=== PATIENT | male | born 1960 | race Caucasian/White ===

== ENCOUNTER → 2018-08-19 10:20 | Outpatient (CLI) | payer OTHER, SELFPAY ==
[2018-08-19 11:55] LABS: Absolute Lymphocyte Count 2.66 X10^3/ul (0.83-4.51); Absolute Neutrophil Count 4.7 X10^3/uL (2.0-7.7); Basophil# 0.02 X10^3/uL; Basophil% 0.2 % (0-1); Eosinophil# 0.05 X10^3/uL; Eosinophils% 0.6 % (0-5); Hematocrit 45.9 % (40-54); Hemoglobin 15.5 g/dl (13.0-16.5); Lymphocyte # 2.66 X10^3/ul (4.0); Lymphocyte % 32.5 % (19-41); Mean Corp Hgb Conc 33.8 g/gl (32-36); Mean Corpuscular Hgb 33.5 pg (27.0-32.0); Mean Corpuscular Volume 99.1 fL (80-94); Mean Platelet Vol. 10.5 fl (6.2-12.0); Monocyte# 0.71 X10^3/uL; Monocyte% 8.7 % (0-10); Neutrophil # 4.74 X10^3/uL (2.7-7.7); Neutrophil % 57.9 % (47-70); Platelet Count 238 K/mm3 (150-450); RBC Distribution Width CV 12.9 % (11.6-14.6); RBC Distribution Width SD 46.6 fl (35.1-43.9); Red Blood Count 4.63 M/mm3 (4.6-6.2); White Blood Count 8.2 K/mm3 (4.4-11.0)
[2018-08-19 11:56] LABS: POSITIVE COUNT NO; POSITIVE DIFFERENTIAL NO; POSITIVE MORPHOLOGY NO
[2018-08-19 12:12] LABS: ALB/GLOB Ratio 1.1 RATIO (0.9-2.4); AST(SGOT) 16 U/L (15-37); Alanine Aminotransfer ALT/SGPT 27 U/L (16-61); Alkaline Phosphatase 94 U/L (45-117); Anion Gap 7 (5-15); BUN 20 mg/dL (7-18); Calcium,Total 9.1 mg/dL (8.5-10.1); Chloride 101 mmol/L (98-107); Cholesterol 187 mg/dL (200); Creatinine, Serum 1.25 mg/dL (0.70-1.30); EST Glomerular Filtration Rate 63 mL/min (>60); Est Glom Filt Rate - Afr Amer 76 mL/min (>60); Globulin 3.7 g/dL (2.2-4.2); Glucose 100 mg/dL (74-106); High Density Lipoprotein 36 mg/dL; PSA,Total - Annual Screen 0.75 ng/mL (0.00-4.00); Potassium 4.4 mmol/L (3.5-5.1); Protein, Total 7.7 g/dL (6.4-8.2); Sodium Level 137 mmol/L (136-145); Triglycerides 247 mg/dL; Very Low Density Lipoprotein 49 mg/dL (5-40)
== END ==
PROVIDERS: Family Provider Family Medicine; PCP Family Medicine; Visit Provider Family Medicine
DX: Z00.01 Encounter for general adult medical examination with abnormal findings (principal); Z12.5 Encounter for screening for malignant neoplasm of prostate
CPT/HCPCS: 36415; 80053; 80061; 84153; 85025; G0103

== ENCOUNTER → 2019-08-25 08:48 | Outpatient (CLI) | payer OTHER, SELFPAY ==
[2019-08-25 12:12] LABS: Absolute Lymphocyte Count 2.53 X10^3/uL (0.83-4.51); Absolute Neutrophil Count 5.3 X10^3/uL (2.0-7.7); Basophil# 0.03 X10^3/uL; Basophil% 0.3 % (0-1); Eosinophil# 0.05 X10^3/uL; Eosinophils% 0.6 % (0-5); Hematocrit 46.5 % (40-54); Hemoglobin 15.9 g/dL (13.0-16.5); Lymphocyte # 2.53 X10^3/ul (4.0); Lymphocyte % 29.1 % (19-41); Mean Corp Hgb Conc 34.2 g/dL (32-36); Mean Corpuscular Hgb 33.3 pg (27.0-32.0); Mean Corpuscular Volume 97.5 fL (80-94); Mean Platelet Vol. 10.6 fl (6.2-12.0); Monocyte# 0.74 X10^3/uL; Monocyte% 8.5 % (0-10); NRBC Flagged by Analyzer 0 % (0-5); Neutrophil # 5.29 X10^3/uL (2.7-7.7); Platelet Count 267 K/mm3 (150-450); RBC Distribution Width CV 12.2 % (11.6-14.6); RBC Distribution Width SD 44.1 fl (35.1-43.9); Red Blood Count 4.77 M/mm3 (4.6-6.2); White Blood Count 8.7 K/mm3 (4.4-11.0)
[2019-08-25 12:32] LABS: ALB/GLOB Ratio 1.1 RATIO (0.9-2.4); AST(SGOT) 22 U/L (15-37); Alanine Aminotransfer ALT/SGPT 35 U/L (16-61); Albumin, Serum 3.9 g/dL (3.2-5.0); Alkaline Phosphatase 87 U/L (45-117); Anion Gap 9 (5-15); BUN 20 mg/dL (7-18); BUN/Creat Ratio 14.7 RATIO (10-20); Calcium,Total 9.1 mg/dL (8.5-10.1); Chloride 102 mmol/L (98-107); Creatinine, Serum 1.36 mg/dL (0.70-1.30); EST Glomerular Filtration Rate 57 mL/min (>60); Est Glom Filt Rate - Afr Amer 68 mL/min (>60); Globulin 3.7 g/dL (2.2-4.2); Glucose 108 mg/dL (74-106); PSA,Total - Annual Screen 1.56 ng/mL (0.00-4.00); Potassium 4.5 mmol/L (3.5-5.1); Protein, Total 7.6 g/dL (6.4-8.2); Sodium Level 138 mmol/L (136-145)
[2019-08-25 14:03] LABS: Hemoglobin A1c 5.9 % (4.2-6.3)
== END ==
PROVIDERS: Family Provider Family Medicine; PCP Family Medicine; Visit Provider Family Medicine
DX: Z00.00 Encounter for general adult medical examination without abnormal findings (principal); Z12.5 Encounter for screening for malignant neoplasm of prostate; R73.01 Impaired fasting glucose
CPT/HCPCS: 36415; 80053; 83036; 84153; 85025; G0103

== ENCOUNTER → 2019-09-02 07:02 | Outpatient (CLI) | payer OTHER, SELFPAY ==
--- NOTE | 2019-09-02 07:05 | CT_ITS ---
STUDY: LOW DOSE CT LUNG CANCER SCREENING REASON FOR EXAM: Male, 59 years old. Patient smoked 1 pack a day for 40 years. RADIATION DOSAGE (If Supplied By Facility): CTDIvol = ( 3.02 ) mGy, DLP = ( 111.74 ) mGycm TECHNIQUE: No contrast was administered. Low dose technique was utilized (average mAS-38 and kVp 120). 1.25 mm axial source images with a slice interval of 1.25-mm were reconstructed in lung windows. 2.5 mm axial source images with a slice interval of 2.5-mm were reconstructed in lung windows. 5.0 mm axial source images with a slice interval of 5.0-mm were reconstructed in soft tissue windows. Nodule measured using lung windows on PACS and/or independent workstation with automated measurement of minimum and maximum diameter. Nodule measurement reported as average diameter rounded to the nearest whole number. Growth is defined as an increase ins size of greater than 1.5 mm. COMPARISON: None. NODULES: No suspicious nodules are seen. Emphysema: Linear scarring at the lung apices. Aorta: Unremarkable. Coronary arteries: Coronary artery calcifications. Heart: Not enlarged. Pulmonary artery: Unremarkable Mediastinal nodes: Small benign-appearing mediastinal lymph nodes. Other chest and abdominal findings: Small hiatal hernia. CT/Low Dose CT Lung Screening IMPRESSION: Lung-RADS category 2 - Continue annual screening with LDCT in 12 months. IMPORTANT NOTES FOR USE: ACR Lung-RADS Version 1.0 Assessment Categories Release Date: February 20, 2014 Category: Coded 0-4 bases on nodule(s) with highest degree of suspicion. Negative screen is defined as categories 1 and 2; a positive screen is defined as categories 3 and 4. Category 3 and 4A nodules that are unchanged on interval CT should be coded as category 2, and individuals returned to screening in 12 months. Category 4X: Category 3 or 4 nodules with additional imaging findings that increase the suspicion of lung cancer, such as spiculation, GGN that doubles in size in 1 year, enlarged lymph notes, etc. Category Modifiers: S (significant finding unrelated to lung cancer) and C (prior history of treated lung cancer) may be added to the 0-4 Lung-RADS Electronically Signed: Colin Dick, at 13:04 EST , Service support ,
== END ==
PROVIDERS: Family Provider Family Medicine; PCP Family Medicine; Referring Provider Family Medicine; Visit Provider Family Medicine
DX: Z12.2 Encounter for screening for malignant neoplasm of respiratory organs (principal); Z87.891 Personal history of nicotine dependence
CPT/HCPCS: G0297

== ENCOUNTER → 2020-08-27 08:54 | Outpatient (CLI) | payer OTHER, SELFPAY ==
[2020-08-27 12:46] LABS: Absolute Lymphocyte Count 2.02 X10^3/uL (0.83-4.51); Absolute Neutrophil Count 4.2 X10^3/uL (2.0-7.7); Basophil# 0.02 X10^3/uL; Basophil% 0.3 % (0-1); Eosinophil# 0.02 X10^3/uL; Eosinophils% 0.3 % (0-5); Hematocrit 45.7 % (40-54); Hemoglobin 15.1 g/dL (13.0-16.5); Lymphocyte # 2.02 X10^3/ul (4.0); Lymphocyte % 29.8 % (19-41); Mean Corpuscular Hgb 32.7 pg (27.0-32.0); Mean Corpuscular Volume 98.9 fL (80-94); Mean Platelet Vol. 10.9 fl (6.2-12.0); Monocyte# 0.51 X10^3/uL; Monocyte% 7.5 % (0-10); NRBC Flagged by Analyzer 0 % (0-5); Neutrophil # 4.18 X10^3/uL (2.7-7.7); Neutrophil % 61.8 % (47-70); Platelet Count 253 K/mm3 (150-450); RBC Distribution Width CV 12.5 % (11.6-14.6); RBC Distribution Width SD 45.5 fl (35.1-43.9); Red Blood Count 4.62 M/mm3 (4.6-6.2); White Blood Count 6.8 K/mm3 (4.4-11.0)
[2020-08-27 12:47] LABS: Hemoglobin A1c 5.7 % (3.8-5.6)
[2020-08-27 12:48] LABS: ALB/GLOB Ratio 1.1 RATIO (0.9-2.4); AST(SGOT) 27 U/L (15-37); Alanine Aminotransfer ALT/SGPT 28 U/L (16-61); Albumin, Serum 3.9 g/dL (3.2-5.0); Alkaline Phosphatase 83 U/L (45-117); Anion Gap 6 (5-15); BUN 20 mg/dL (7-18); BUN/Creat Ratio 15.6 RATIO (10-20); Calcium,Total 8.8 mg/dL (8.5-10.1); Chloride 102 mmol/L (98-107); Cholesterol 199 mg/dL (200); Creatinine, Serum 1.28 mg/dL (0.70-1.30); EST Glomerular Filtration Rate 61 mL/min (>60); Est Glom Filt Rate - Afr Amer 73 mL/min (>60); Globulin 3.6 g/dL (2.2-4.2); Glucose 105 mg/dL (74-106); High Density Lipoprotein 47 mg/dL; PSA,Total - Annual Screen 0.66 ng/mL (0.00-4.00); Potassium 4.6 mmol/L (3.5-5.1); Protein, Total 7.5 g/dL (6.4-8.2); Sodium Level 136 mmol/L (136-145); Triglycerides 204 mg/dL; Very Low Density Lipoprotein 41 mg/dL (5-40)
== END ==
PROVIDERS: PCP Family Medicine; Visit Provider Family Medicine
DX: Z00.00 Encounter for general adult medical examination without abnormal findings (principal); I10 Essential (primary) hypertension; R73.01 Impaired fasting glucose; Z12.5 Encounter for screening for malignant neoplasm of prostate
CPT/HCPCS: 36415; 80053; 80061; 83036; 84153; 85025; G0103

== ENCOUNTER 2021-01-03 12:00 | Outpatient (RCR) | payer OTHER, SELFPAY ==
[2021-01-03] MEDS: COVID-19 VACC, MRNA(PFIZER)/PF 30 MCG/0.3 ML SYRINGE IM (11:47)
[2021-01-24] MEDS: COVID-19 VACC, MRNA(PFIZER)/PF 30 MCG/0.3 ML SYRINGE IM (11:41)
== END 2021-01-03 23:59 ==
LOC: IMMUN 12:00
PROVIDERS: PCP Family Medicine; Visit Provider Family Medicine
DX: Z23 Encounter for immunization (principal)
CPT/HCPCS: 0001A; 0002A; 91300

== ENCOUNTER → 2021-09-07 08:40 | Outpatient (CLI) | payer OTHER, SELFPAY ==
--- NOTE | 2021-09-07 08:46 | CT_ITS ---
STUDY: LOW DOSE CT LUNG CANCER SCREENING REASON FOR EXAM: Male, 61 years old. Smoking history of 1 pack per day x40 years RADIATION DOSAGE (If Supplied By Facility): CTDIvol = ( 3.02 ) mGy, DLP = ( 121.92 ) mGycm TECHNIQUE: No contrast was administered. Low dose technique was utilized (average mAS-38 and kVp 120). 1.25 mm axial source images with a slice interval of 1.25-mm were reconstructed in lung windows. 2.5 mm axial source images with a slice interval of 2.5-mm were reconstructed in lung windows. 5.0 mm axial source images with a slice interval of 5.0-mm were reconstructed in soft tissue windows. Nodule measured using lung windows on PACS and/or independent workstation with automated measurement of minimum and maximum diameter. Nodule measurement reported as average diameter rounded to the nearest whole number. Growth is defined as an increase ins size of greater than 1.5 mm. COMPARISON: 09/02/2019 FINDINGS: Lung windows show stable pleural thickening in the apices. Lungs are normally expanded without a superimposed noncalcified mass or nodule, no organized infiltrate, or effusion. Soft tissue windows do not show evidence of suspicious adenopathy. There are calcified coronary vessels. No pleural or pericardial effusions. Bony structures show degenerative change. Limited cuts through the upper abdomen show multiple gallstones. CT/Low Dose CT Lung Screening IMPRESSION: Lung-RADS category 2 - Continue annual screening with LDCT in 12 months. IMPORTANT NOTES FOR USE: ACR Lung-RADS Version 1.1 Assessment Categories Release Date: 2018 Category: Coded 0-4 bases on nodule(s) with highest degree of suspicion. Negative screen is defined as categories 1 and 2; a positive screen is defined as categories 3 and 4. Category 3 and 4A nodules that are unchanged on interval CT should be coded as category 2, and individuals returned to screening in 12 months. Category 4X: Category 3 or 4 nodules with additional imaging findings that increase the suspicion of lung cancer, such as spiculation, GGN that doubles in size in 1 year, enlarged lymph notes, etc. Category Modifiers: S (significant finding unrelated to lung cancer) Electronically Signed: Prashanth Mehta MD at 9:44 EST , Service support ,
== END ==
PROVIDERS: PCP Family Medicine; Visit Provider Family Medicine
DX: Z12.2 Encounter for screening for malignant neoplasm of respiratory organs (principal)
CPT/HCPCS: 71271

== ENCOUNTER 2021-12-06 08:28 | Day surgery (SDC) | payer OTHER, SELFPAY ==
[2021-12-06 08:45] VITALS: BP 106/75; PULSE 68; RESP 18; TEMP 36.4; O2SAT 100; BMI 23.6
[2021-12-06] MEDS: Lactated Ringers 1,000 ML 15 ML IV (08:45)
--- NOTE | 2021-12-06 09:02 | PCM.HP.BLA ---
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 Is patient in pain?: No Allergies No Known Allergies Allergy (Verified 11/25/21 13:04) Medications aspirin 81 mg tablet,delayed release 81 mg PO DAILY 11/25/21 [History Confirmed 11/25/21] lisinopril 20 mg-hydrochlorothiazide 12.5 mg tablet 1 tab PO DAILY 11/25/21 [History Confirmed 11/25/21] PFSH Medical History (Updated 11/25/21 @ 13:02 by Tamrathursday) History of malignant melanoma History of malignant melanoma of skin Hypertension Psoriasis Surgical History (Updated 11/25/21 @ 13:02 by Tamra Thursday) History of removal of skin mole History of tonsillectomy Family History (Updated 11/25/21 @ 13:03 by Tamra Thursday) Father Hypertension Heart disease CVA (cerebral vascular accident) Mother Hypertension Cancer skin Uncle Colon cancer Social History (Updated 11/25/21 @ 13:03 by Tamra Thursday) Smoking Status: Former smoker alcohol intake: current substance use type: does not use HPI HPI HPI: KAREL CASH, is a 61 M who presents to the office today for surgical consultation regarding a screening colonoscopy. The patient's had a previous history of left shoulder melanoma that was excised in 2010 at [facility]. The patient is referred by Dr. Emery Jacobsen and a written copy of my surgical consult recommendations regarding a screening colonoscopy will be returned to him. The patient had a previous colonoscopy 10 years ago. He denies any current symptoms. Fortunately he ceased smoking tobacco 3 years ago. He denies chest pain or shortness of breath. He does have hypertension treated with oral medication. No family history ROS General General: No weight change, appetite, fatigue, colon cancer, breast cancer or weakness HEENT HEENT: No difficulty swallowing, eye injury, eye surgery, swollen glands or hoarseness Endo Endocrine: No thyroid disease, diabetes mellitus, thyroid cancer, Hair loss, heat intolerance or cold intolerance Skin Skin: No rash or changing moles Musc Musculoskeletal: No back problems, arthritis, rheumatoid arthritis, gout or joint pain Cardio Cardiovascular: No murmur, pacemaker, heart disease, atrial fibrillation, high blood pressure, heart attack, heart stent, palpitations, shortness of breat with exertion or chest pain Psych Psychiatric: No depression, anxiety or hearing voices Resp Respiratory: No shortness of breath, No sleep apnea, No cough, No COPD, No asthma, No emphysema and No wheezing Gastro Gastrointestinal: No abdominal pain, No nausea or vomiting, No diarrhea, No constipation, No blood in stool, No acid reflux, No hemorrhoids, No ulcers, No gallbladder problem and No black,tarry stools Tylor Hematologic: No blood thinners, No blood disorders, No bleeding, No anemia and No blood clots Neuro Neurologic: No system reviewed and no additional complaints, except as documented, No as per HPI, No abnormal gait, No abnormal hearing, No abnormal movements, No abnormal speech, No behavioral changes, No burning sensations, No confusion, No convulsions, No disequilibrium, No dizziness, No localized weakness, No frequent falls, No headache(s), No lack of coordination, No loss of vision, No memory loss, No numbness, No other visual disturbances, No radicular pain, No restless legs, No sensory deficit, No syncope, No tingling, No tremor(s), No weakness and No other Exam Const General: cooperative, healthy appearing and comfortable Nutritional Appearance: average body habitus Orientation: alert and awake [facility] Head: normal to inspection Eyes General: appearance normal, both eyes and all related structures Chest Other: Increased anterior posterior diameter Resp Effort & Inspection: normal respiratory effort Auscultation: clear to auscultation bilaterally Cardio Rate: regular rate Rhythm: regular rhythm GI Palpation: soft and no hepatosplenomegaly Skin General: no rashes or lesions noted Neuro General: patient alert and patient awake Extrem General: no calf tenderness Psych Appearance: grossly normal Assessment and Plan Assessment and Plan (1) Screening for intestinal cancer: Status: Acute Plan - Dr. Helder Sosa MD: Plan to schedule and proceed with a screening colonoscopy with possible biopsy or polypectomy as indicated. History of note is previous history of tobacco use and previous history of melanoma of the left shoulder. The patient is asymptomatic from a GI standpoint. He has had an opportunity to ask and have questions answered. We will schedule and proceed at his discretion. I appreciate the opportunity of assisting with her surgical care. Copy: Dr. Emery Sosa M.D., F.A.C.S. I have re-examined the patient. There are no clinical changes since date of exam.
--- NOTE | 2021-12-06 10:29 | OP.COLON_ITS ---
Patient Name: Marc Fofana Procedure Date: 12/06/2021 9:59 AM Date of : 1960 Age: 61 Procedure: Colonoscopy Indications: Screening for colorectal malignant neoplasm Providers: Helder Sosa MD Medicines: See the Anesthesia note for documentation of the administered medications Patient Profile: Last Colonoscopy: 10 years ago. Complications: No immediate complications. Procedure: Pre-Anesthesia Assessment: - Prior to the procedure, a History and Physical was performed, and patient medications and allergies were reviewed. The patient's tolerance of previous anesthesia was also reviewed. The risks and benefits of the procedure and the sedation options and risks were discussed with the patient. All questions were answered, and informed consent was obtained. Prior Anticoagulants: The patient has taken no previous anticoagulant or antiplatelet agents. ASA Grade Assessment: II - A patient with mild systemic disease. After reviewing the risks and benefits, the patient was deemed in satisfactory condition to undergo the procedure. After I obtained informed consent, the scope was passed under direct vision. Throughout the procedure, the patient's blood pressure, pulse, and oxygen saturations were monitored continuously. The colonoscope was introduced through the anus and advanced to the cecum, identified by appendiceal orifice and ileocecal valve. The colonoscopy was performed without difficulty. The patient tolerated the procedure well. The quality of the bowel preparation was good. The ileocecal valve and the appendiceal orifice were photographed. Scope In: 10:10:59 AM Scope Withdrawal Time 0 hours 9 minutes 0 seconds Scope Out: 10:24:39 AM Total Procedure Duration Time 0 hours 13 minutes 40 seconds Findings: The digital rectal exam findings include non-thrombosed internal hemorrhoids and internal hemorrhoids (Grade I). Pertinent negatives include normal prostate (size, shape, and consistency). The exam was otherwise without abnormality. Impression: - Non-thrombosed internal hemorrhoids and internal hemorrhoids (Grade I) found on digital rectal exam. - The examination was otherwise normal. - No specimens collected. Recommendation: - Discharge patient to home. - Resume previous diet. - Continue present medications. - Repeat colonoscopy in 10 years for screening purposes. Procedure Code(s): --- Professional --- 98573, Colonoscopy, flexible; diagnostic, including collection of specimen(s) by brushing or washing, when performed (separate procedure) Diagnosis Code(s): --- Professional --- Z12.11, Encounter for screening for malignant neoplasm of colon K64.0, First degree hemorrhoids CPT copyright 2017 [employer]. All rights reserved. The codes documented in this report are preliminary and upon surface mount technology operator review may be revised to meet current compliance requirements. Helder Sosa MD 12/06/2021 10:29:24 AM This report has been signed electronically. Number of Addenda: 0 Note Initiated On: 12/06/2021 9:59 AM
[2021-12-06 10:30] VITALS: BP 101/64; BP 106/75; PULSE 71; RESP 16; TEMP 36.3; O2SAT 97
--- NOTE | 2021-12-06 10:30 | OP.CCLET_ITS ---
12/06/2021 Emery Jacobsen [address] [place] [address] Re : Colonoscopy procedure for Marc Fofana Dear Dr. Jacobsen This procedure was performed on Monday, December 06, 2021. My impressions and recommendations are as follows: Impressions : - Non-thrombosed internal hemorrhoids and internal hemorrhoids (Grade I) found on digital rectal exam. - The examination was otherwise normal. - No specimens collected. Recommendations : - Discharge patient to home. - Resume previous diet. - Continue present medications. - Repeat colonoscopy in 10 years for screening purposes. My findings are described in the full procedure note, which is enclosed. If I can be of further assistance, please feel free to contact me at Doctor phone number(s): Work: . Sincerely, Helder Sosa MD 12/06/2021 10:29:24 AM This report has been signed electronically.
[2021-12-06 10:35] VITALS: BP 101/69; BP 106/75; PULSE 65; RESP 16; O2SAT 95
[2021-12-06 10:41] VITALS: BP 106/75; BP 99/64; PULSE 62; RESP 16; O2SAT 95
[2021-12-06 10:44] VITALS: BP 104/73; BP 106/75; PULSE 59; RESP 16; TEMP 36.6; O2SAT 99
[2021-12-06 11:00] VITALS: BP 106/75
== END 2021-12-06 23:59 | disposition home or self-care (01) ==
LOC: EN 08:30 → AC 08:30
PROVIDERS: PCP Family Medicine; Referring Provider Family Medicine; Visit Provider Surgery
PROC: 0DJD8ZZ Inspection of Lower Intestinal Tract, Via Natural or Artificial Opening Endoscopic (ICD-10-PCS; CPT 45378; principal; 2021-12-06 09:40)
DX: Z12.11 Encounter for screening for malignant neoplasm of colon (principal); K64.0 First degree hemorrhoids; I10 Essential (primary) hypertension; Z80.0 Family history of malignant neoplasm of digestive organs; Z87.891 Personal history of nicotine dependence; Z79.82 Long term (current) use of aspirin; Z79.899 Other long term (current) drug therapy
CPT/HCPCS: 45378; J7120; J2405

== ENCOUNTER → 2022-09-11 | Outpatient (CLI) | payer OTHER, SELFPAY ==
[2022-09-11 12:19] LABS: Absolute Lymphocyte Count 2.19 X10^3/uL (0.83-4.51); Basophil# 0.04 X10^3/uL; Basophil% 0.4 % (0-1); Eosinophil# 0.05 X10^3/uL; Eosinophils% 0.6 % (0-5); Hematocrit 45.2 % (40-54); Hemoglobin 15.3 g/dL (13.0-16.5); Lymphocyte # 2.19 X10^3/ul (0.83-4.51); Lymphocyte % 24.1 % (19-41); Mean Corp Hgb Conc 33.8 g/dL (32-36); Mean Corpuscular Hgb 32.8 pg (27.0-32.0); Mean Platelet Vol. 10.4 fl (6.2-12.0); Monocyte# 0.73 X10^3/uL; NRBC Flagged by Analyzer 0 % (0-5); Neutrophil # 6.02 X10^3/uL (2.7-7.7); Neutrophil % 66.5 % (47-70); Platelet Count 284 K/mm3 (150-450); RBC Distribution Width CV 12.9 % (11.6-14.6); RBC Distribution Width SD 45.7 fl (35.1-43.9); Red Blood Count 4.66 M/mm3 (4.6-6.2); White Blood Count 9.1 K/mm3 (4.4-11.0)
[2022-09-11 12:44] LABS: Hemoglobin A1c 5.8 % (3.8-5.6)
[2022-09-11 13:14] LABS: AST(SGOT) 20 U/L (15-37); Alanine Aminotransfer ALT/SGPT 29 U/L (16-61); Albumin, Serum 3.7 g/dL (3.2-5.0); Alkaline Phosphatase 77 U/L (45-117); Anion Gap 6 (5-15); BUN 20 mg/dL (7-18); BUN/Creat Ratio 15.2 RATIO (10-20); Calcium,Total 9.1 mg/dL (8.5-10.1); Chloride 103 mmol/L (98-107); Cholesterol 198 mg/dL (200); Creatinine, Serum 1.32 mg/dL (0.70-1.30); EST Glomerular Filtration Rate 58 mL/min (>60); Est Glom Filt Rate - Afr Amer 70 mL/min (>60); Globulin 3.8 g/dL (2.2-4.2); Glucose 107 mg/dL (74-106); High Density Lipoprotein 46 mg/dL; PSA,Total - Annual Screen 0.83 ng/mL (0.00-4.00); Potassium 4.9 mmol/L (3.5-5.1); Protein, Total 7.5 g/dL (6.4-8.2); Sodium Level 136 mmol/L (136-145); Triglycerides 219 mg/dL; Very Low Density Lipoprotein 44 mg/dL (5-40)
== END | disposition home or self-care (01) ==
LOC: BFHLAB 10:01
PROVIDERS: PCP Family Medicine; Visit Provider Family Medicine
DX: Z00.00 Encounter for general adult medical examination without abnormal findings (principal); R73.01 Impaired fasting glucose
CPT/HCPCS: 36415; 80053; 80061; 83036; 84153; 85025; G0103

== ENCOUNTER → 2022-09-23 | Outpatient (CLI) | payer OTHER, SELFPAY ==
--- NOTE | 2022-09-23 07:47 | CT_ITS ---
STUDY: LOW DOSE CT LUNG CANCER SCREENING REASON FOR EXAM: Male, 62 years old. 1 pack per day smoker x44 years, quit 4 years ago RADIATION DOSAGE (If Supplied By Facility): CTDIvol = ( 3.02 ) mGy, DLP = ( 116.64 ) mGycm TECHNIQUE: No contrast was administered. Low dose technique was utilized (average mAS-38 and kVp 120). 1.25 mm axial source images with a slice interval of 1.25-mm were reconstructed in lung windows. 2.5 mm axial source images with a slice interval of 2.5-mm were reconstructed in lung windows. 5.0 mm axial source images with a slice interval of 5.0-mm were reconstructed in soft tissue windows. COMPARISON: 09/07/2021 FINDINGS: Lung windows show normal expansion of the lungs with stable nonspecific pleural thickening in the apices and interstitial changes in both lung kaplan. There remains no organized infiltrate, or suspicious noncalcified mass or nodule. Soft tissue windows show normal-appearing thyroid gland. No suspicious adenopathy. There is aneurysmal dilatation of the ascending thoracic aorta at 4.04 cm. There are calcified coronary vessels. No pleural or pericardial effusions. Limited cuts through the upper abdomen show a hiatal hernia and multiple gallstones. Bony structures show degenerative change CT/Low Dose CT Lung Screening IMPRESSION: Lung-RADS category 2 - Continue annual screening with LDCT in 12 months. IMPORTANT NOTES FOR USE: ACR Lung-RADS Version 1.1 Assessment Categories Release Date: 2018 Category: Coded 0-4 bases on nodule(s) with highest degree of suspicion. Negative screen is defined as categories 1 and 2; a positive screen is defined as categories 3 and 4. Category 3 and 4A nodules that are unchanged on interval CT should be coded as category 2, and individuals returned to screening in 12 months. Category 4X: Category 3 or 4 nodules with additional imaging findings that increase the suspicion of lung cancer, such as spiculation, GGN that doubles in size in 1 year, enlarged lymph notes, etc. Category Modifiers: S (significant finding unrelated to lung cancer) Electronically Signed: Prashanth Mehta MD at 10:20 EST ,
== END | disposition home or self-care (01) ==
PROVIDERS: PCP Family Medicine; Referring Provider Family Medicine; Visit Provider Family Medicine
DX: Z12.2 Encounter for screening for malignant neoplasm of respiratory organs (principal); Z87.891 Personal history of nicotine dependence
CPT/HCPCS: 71271

== ENCOUNTER → 2023-09-15 | Outpatient (CLI) | payer MEDICARE, SELFPAY ==
[2023-09-15 12:22] LABS: Absolute Lymphocyte Count 1.75 X10^3/uL (0.83-4.51); Absolute Neutrophil Count 3.9 X10^3/uL (2.0-7.7); Basophil# 0.03 X10^3/uL; Basophil% 0.5 % (0-1); Eosinophil# 0.05 X10^3/uL; Eosinophils% 0.8 % (0-5); Hematocrit 45.9 % (40-54); Lymphocyte # 1.75 X10^3/ul (0.83-4.51); Lymphocyte % 27.3 % (19-41); Mean Corp Hgb Conc 32.7 g/dL (32-36); Mean Corpuscular Hgb 31.9 pg (27.0-32.0); Mean Corpuscular Volume 97.7 fL (80-94); Mean Platelet Vol. 10.6 fl (6.2-12.0); Monocyte# 0.69 X10^3/uL; Monocyte% 10.8 % (0-10); NRBC Flagged by Analyzer 0 % (0-5); Neutrophil # 3.86 X10^3/uL (2.7-7.7); Neutrophil % 60.1 % (47-70); Platelet Count 282 K/mm3 (150-450); RBC Distribution Width CV 12.9 % (11.6-14.6); RBC Distribution Width SD 46.2 fl (35.1-43.9); White Blood Count 6.4 K/mm3 (4.4-11.0)
[2023-09-15 12:47] LABS: ALB/GLOB Ratio 0.9 RATIO (0.9-2.4); AST(SGOT) 25 U/L (15-37); Alanine Aminotransfer ALT/SGPT 26 U/L (16-61); Albumin, Serum 3.6 g/dL (3.2-5.0); Alkaline Phosphatase 78 U/L (45-117); Anion Gap 4 (5-15); BUN 20 mg/dL (7-18); BUN/Creat Ratio 14.8 RATIO (10-20); Calcium,Total 9.2 mg/dL (8.5-10.1); Chloride 104 mmol/L (98-107); Cholesterol 206 mg/dL (200); Creatinine, Serum 1.35 mg/dL (0.70-1.30); EST Glomerular Filtration Rate 56 mL/min (>60); Est Glom Filt Rate - Afr Amer 68 mL/min (>60); Globulin 3.9 g/dL (2.2-4.2); Glucose 106 mg/dL (74-106); High Density Lipoprotein 44 mg/dL; PSA,Total - Annual Screen 0.88 ng/mL (0.00-4.00); Potassium 5.6 mmol/L (3.5-5.1); Protein, Total 7.5 g/dL (6.4-8.2); Sodium Level 137 mmol/L (136-145); Triglycerides 217 mg/dL; Very Low Density Lipoprotein 43 mg/dL (5-40)
[2023-09-15 13:19] LABS: Hemoglobin A1c 5.7 % (3.8-5.6)
== END | disposition home or self-care (01) ==
PROVIDERS: PCP Family Medicine; Visit Provider Family Medicine
DX: I25.10 Atherosclerotic heart disease of native coronary artery without angina pectoris (principal); I10 Essential (primary) hypertension; R73.01 Impaired fasting glucose; Z12.5 Encounter for screening for malignant neoplasm of prostate
CPT/HCPCS: 36415; 80053; 80061; 83036; 84153; 85025; G0103

== ENCOUNTER → 2023-09-21 | Outpatient (CLI) | payer MEDICARE, SELFPAY ==
[2023-09-21 13:05] LABS: Anion Gap 7 (5-15); BUN 23 mg/dL (7-18); BUN/Creat Ratio 16.4 RATIO (10-20); Chloride 103 mmol/L (98-107); EST Glomerular Filtration Rate 54 mL/min (>60); Est Glom Filt Rate - Afr Amer 65 mL/min (>60); Glucose 104 mg/dL (74-106); Potassium 4.3 mmol/L (3.5-5.1); Sodium Level 137 mmol/L (136-145)
== END | disposition home or self-care (01) ==
LOC: BFHLAB 08:34
PROVIDERS: PCP Family Medicine; Visit Provider Family Medicine
DX: E87.5 Hyperkalemia (principal)
CPT/HCPCS: 36415; 80048

== ENCOUNTER → 2023-09-29 | Outpatient (CLI) | payer MEDICARE, SELFPAY ==
--- NOTE | 2023-09-29 09:02 | AAAS_ITS ---
Reason For Study: screening Aorta Measurements Aorta Doppler Measurements Proximal aorta measures1.79 x 1.79cm. in cross- Peak systolic flow velocities within the proximal sectional axis. aorta measure 79.6 cm/sec. Proximal aorta measures1.77cm. in longitudinal Peak systolic flow velocities within the mid aorta axis. measure 90.4 cm/sec. Mid aorta measures1.46 x 1.44cm. in cross- Peak systolic flow velocities within the distal sectional axis. aorta measure 92.2 cm/sec. Mid aorta measures1.47cm. in longitudinal axis. Distal aorta measures1.34 x 1.36cm. in cross- sectional axis. Distal aorta measures1.35cm. in longitudinal axis. Left Iliac Artery Left iliac artery measures .84 x .78 cm. in the cross-sectional axis. Left iliac artery measures .85 cm. in the longitudinal axis. Peak systolic velocity in the left iliac artery measures 137.1 cm/sec. Right Iliac Artery Right iliac artery measures .88 x .93 cm. in the cross-sectional axis. Right iliac artery measures .84 cm. in the longitudinal axis. Peak systolic velocity in the right iliac artery measures 183.8 cm/sec. Procedure Aorta IVC Iliac vasculature or bypass grafts [id number]. The exam was diagnostic. Exam performed in department. VL/AAA Screening Interpretation Summary Aorta patent, normal caliber Bilateral iliac arteries patent, normal caliber Ordering Physician: Emery Jacobsen Performed By: Bob Savage RVT
--- NOTE | 2023-09-29 09:03 | CT_ITS ---
STUDY: LOW DOSE CT LUNG CANCER SCREENING REASON FOR EXAM: Male, 63 years old. SCREENING -- HAS VL FIRST, WILL CALL FIRST RADIATION DOSAGE (If Supplied By Facility): CTDIvol = ( 3.02 ) mGy, DLP = ( 114.00 ) mGycm TECHNIQUE: No contrast was administered. Low dose technique was utilized (average mAS-38 and kVp 120). 1.25 mm axial source images with a slice interval of 1.25-mm were reconstructed in lung windows. 2.5 mm axial source images with a slice interval of 2.5-mm were reconstructed in lung windows. 5.0 mm axial source images with a slice interval of 5.0-mm were reconstructed in soft tissue windows. COMPARISON: 09/23/2022 Emphysema: Mild bilateral apical scarring. Mild emphysema. No noncalcified nodule or mass. Endobronchial lesion: None Aorta: No aortic aneurysm. CORONARY ARTERIES: Coronary artery calcification is seen. Heart: No cardiomegaly. Pulmonary artery: Normal Mediastinal nodes: Normal Other chest and abdominal findings: Wall thickening of the distal esophagus possibly from esophagitis or mass. Endoscopy may be useful. Ossified gallstones in the gallbladder consistent with cholelithiasis. CT/Low Dose CT Lung Screening IMPRESSION: Lung-RADS category 1 - Continue annual screening with LDCT in 12 months. IMPORTANT NOTES FOR USE: ACR Lung-RADS Version 1.1 Assessment Categories Release Date: 2018 Category: Coded 0-4 bases on nodule(s) with highest degree of suspicion. Negative screen is defined as categories 1 and 2; a positive screen is defined as categories 3 and 4. Category 3 and 4A nodules that are unchanged on interval CT should be coded as category 2, and individuals returned to screening in 12 months. Category 4X: Category 3 or 4 nodules with additional imaging findings that increase the suspicion of lung cancer, such as spiculation, GGN that doubles in size in 1 year, enlarged lymph notes, etc. Category Modifiers: S (significant finding unrelated to lung cancer) Electronically Signed: Nick Webb MD at 23:17 EST ,
== END | disposition home or self-care (01) ==
LOC: CT 08:57
PROVIDERS: PCP Family Medicine; Referring Provider Family Medicine; Visit Provider Family Medicine
DX: Z12.2 Encounter for screening for malignant neoplasm of respiratory organs (principal); Z87.891 Personal history of nicotine dependence; Z13.6 Encounter for screening for cardiovascular disorders
CPT/HCPCS: 71271; 76706

== ENCOUNTER 2023-10-07 09:27 | Day surgery (SDC) | payer MEDICARE, SELFPAY ==
[2023-10-07] VITALS (7 sets, daily range): BP systolic 92–130; BP diastolic 60–79; PULSE 18–67; RESP 16–96; TEMP 36.3–37.2; O2SAT 64–100; BMI 24.9
[2023-10-07] MEDS: Lactated Ringers 1,000 ML 15 ML IV (09:51)
--- NOTE | 2023-10-07 09:57 | HP.PCM_ITS ---
History and Physical Date of Admission: 10/07/23 Visit Reasons: UPPER SCOPE FOR ESOPHAGITIS V MASS Chief Complaint: upper scope for esophagitis v mass Is patient in pain?: No Allergies No Known Allergies Allergy (Verified 10/06/23 15:21) Medications aspirin 81 mg tablet,delayed release (Adult Aspirin Regimen) 81 mg PO DAILY 11/25/21 [History Confirmed 10/06/23] lisinopril 20 mg-hydrochlorothiazide 12.5 mg tablet 1 tab PO DAILY 11/25/21 [History Confirmed 10/06/23] [facility] Medical History Alcohol use Former smoker Heartburn History of malignant melanoma History of malignant melanoma of skin Hypertension Psoriasis Wears glasses Surgical History History of colonoscopy History of removal of skin mole History of tonsillectomy Family History Father Hypertension Heart disease CVA (cerebral vascular accident)Mother Hypertension Cancer skinUncle Colon cancer Social History (Updated 11/25/21 @ 13:03 by Tamra Thursday) Smoking Status: Former smoker alcohol intake: current substance use type: does not use HPI HPI HPI: 63-year-old gentleman. He has a previous history of cigarette smoking and has annual chest CT scans as surveillance. On his most recent evaluation September 29, 2023 there was a question of thickening of the distal esophagus possible reflux or possible mass. He has been referred for evaluation. He has no swallowing difficulties however then he does state that he has had for years intermittent episodes of heartburn. In the past he would take Rolaids as needed but nothing consistently. He states that Dr Alex Boston just recently prescribed him reflux medication and the patient is awaiting for via mail delivery. He states however that in general he does not have discomfort and has no swallowing problems. He has had no weight loss. ROS General General: No weight change, appetite, fatigue, colon cancer or breast cancer HEENT HEENT: No difficulty swallowing, eye injury, eye surgery, swollen glands or hoarseness Endo Endocrine: No thyroid disease, diabetes mellitus, thyroid cancer, Hair loss, heat intolerance or cold intolerance Skin Skin: No rash or changing moles Breast Breast: No left breast lump, right breast lump, nipple discharge, breast pain, abnormal mammogram, abnormal US or breast enlargement Musc Musculoskeletal: No back problems, arthritis, rheumatoid arthritis, gout or joint pain Cardio Cardiovascular: No murmur, pacemaker, heart disease, atrial fibrillation, high blood pressure, heart attack, heart stent, palpitations, shortness of breat with exertion or chest pain Psych Psychiatric: No depression, anxiety or hearing voices Resp Respiratory: No shortness of breath, No sleep apnea, No cough, No COPD, No asthma, No emphysema and No wheezing Gastro Gastrointestinal: No abdominal pain, No nausea or vomiting, No diarrhea, No constipation, No blood in stool, No acid reflux, No hemorrhoids, No ulcers, No gallbladder problem and No black,tarry stools Tylor Hematologic: No blood thinners, No blood disorders, No bleeding, No anemia and No blood clots Exam Const General: cooperative, healthy appearing, comfortable and no acute distress Nutritional Appearance: average body habitus HENMT Head: normal to inspection Eyes General: appearance normal, both eyes and all related structures Neck Neck: normal visual inspection Chest Other: Slightly increased AP diameter Resp Effort & Inspection: normal respiratory effort Auscultation: clear to auscultation bilaterally Cardio Rate: regular rate Rhythm: regular rhythm GI Other: Soft, nontender Skin General: no rashes or lesions noted Neuro General: patient alert, patient awake and patient oriented x3 Extrem General: no calf tenderness Psych Appearance: grossly normal Assessment and Plan Assessment and Plan (1) Abnormal CT lung screening: Status: Acute Plan: Abnormal CT screening imaging with possible distal esophageal thickening. I recommended the patient a esophagogastroduodenoscopy with possible biopsy or polypectomy as indicated. He is aware of the technique, benefit, risk, alternatives. He had an opportunity ask and have questions answered. We will ask mellitus care and have scheduled him for tomorrow Copy: Dr Alex Sosa M.D., F.A.C.S. I have examined the patient and the H&P has been reviewed. There are no clinical changes since date of exam. Helder Sosa M.D., F.A.C.S.
--- NOTE | 2023-10-07 10:30 | IMM_PTH ---
PATIENT: KAREL CASH LOC: EN U#:[id number] AGE/SX: 63/M ROOM: RE10/07/[address]: Dr. Helder Sosa MD : 1960 BED: DIS: 10/07/2023 SPEC #: [id number] RECD: 10/07/23 13:46 STATUS: ANDREW REQ #: [id number] PASCALE: 10/07/23 10:[address]: Helder Sosa DEPT: IMMUNOHISTOCHEMISTRY RECD BY: Megan Stearns ENTERED: 10/07/23 13:46 SP TYPE: IMMUNO OTHR DR: Dr. Emery Jacobsen, DO Tissues: B - Stomach, NOS D - Esophageal mucous membrane Procedures: H Pylori (initial) CK20 (add) CK7 (add) KI-67 (add) P53 (add) Pankeratin (initial) CDX2 (add) MOC-31 (add) PHYSICIAN & [address] [address] SPECIMEN INFORMATION: Tissue Source: B - Gastric antrum, D - Distal esophagus Clinical Info: Abnormal CT lung screening Specimen Number: [id number] B & D CPT code: 27796 x2, 91148 x6 METHODOLOGY: Deparaffinized sections of prefer/formalin-fixed tissue or PAP/DQ stained slides are incubated with monoclonal/polyclonal antibodies/oligonucleotide probes. Localization is made via biotin free immunoperoxidase method. Appropriate controls are performed and reacted as expected. Results on target cell population are indicated in the following table: RESULTS: ANTIBODY / CLONE RESULT Block B H Pylori (polyclonal) negative Block D AE1-3 (AE1/AE3/PCK26) negative CK7 (OV-TL12/30) negative CK20 (KS20.8) negative CDX2 ([id number]) negative MOC-31 (4561) negative P53 (DO-7) negative, null pattern Ki-67 (30-9) positive, low These tests were developed and their performance characteristics determined by [facility]. They may not have been cleared or approved by the U.S. Food and Drug Administration. The FDA has determined that such clearance or approval is not necessary. The above immunohistochemical/dualISH markers are ordered and reviewed by the Pathologist. INTERPRETATION: B. Gastric antrum, biopsy: Negative for Helicobacter pylori organisms. D. Distal esophagus, biopsy: No evidence of malignancy. AM:reza 10/09/2023
--- NOTE | 2023-10-07 10:30 | EGD_PTH ---
PATIENT: KAREL CASH LOC: EN U#:[id number] AGE/SX: 63/M ROOM: RE10/07/[address]: Dr. Helder Sosa MD : 1960 BED: DIS: 10/07/2023 SPEC #: [id number] RECD: 10/07/23 12:58 STATUS: ANDREW RAMIREZ #: [id number] PASCALE: 10/07/23 10:[address]: Helder Sosa DEPT: SURGICAL PATHOLOGY RECD BY: Leah Carter ENTERED: 10/07/23 12:59 SP TYPE: EGD BIOPSY OTHR DR: Dr. Emery Jacobsen DO Tissues: A - Duodenum, NOS B - Gastric mucous membrane C - Gastric mucous membrane D - Esophageal mucous membrane Procedures: Special Stain Group II Mucicarmine Stain (control) Surgery Specimen Level IV Alcian Blue/PAS (control) HEADER OPERATION: EGD biopsy PRE-OP DIAGNOSIS: Abnormal CT lung screening TISSUE SUBMITTED: A - Duodenum biopsy, B - Gastric antrum biopsy, H. pylori and path, C - Greater curvature polyp x2 biopsy, D - Distal esophagus biopsy MICROSCOPIC DIAGNOSIS A. Duodenum, biopsy: Focal gastric metaplasia. Minimal nonspecific chronic inflammation. B. Gastric antrum, biopsy: Mild chronic gastritis. See comment. C. Stomach, greater curvature polyp, biopsy: Suggestive of fundic gland polyp. D. Distal esophagus, biopsy: Gastroesophageal junctional mucosa with chronic inflammation. Focal ulceration with associated acute and chronic inflammation and granulation. Fibrinopurulent material. See comment. AM:reza 10/08/2023 COMMENT B. The results of immunohistochemistry for Helicobacter pylori will be reported separately ([id number]). D. Immunohistochemistry ([id number]) supports the above diagnosis. Alcian blue/PAS and Mucin stains with matched controls support the above diagnosis. Case has been reviewed in consultation with Dr. Garcia who concurs with the above diagnosis. IDC:SJ MICROSCOPIC DESCRIPTION Slides are reviewed. GROSS DESCRIPTION A - Received in fixative is one container labeled with the patient's name and designated duodenum biopsy. The specimen consists of one irregular fragment of light simon soft tissue that measures 0.3 x 0.3 x 0.1 cm. The specimen is totally submitted in one cassette. B - Received in fixative is one container labeled with the patient's name and designated antrum biopsy. The specimen consists of one irregular fragment of light simon soft tissue that measures 0.5 x 0.2 x 0.1 cm. The specimen is totally submitted in one cassette. C - Received in fixative is one container labeled with the patient's name and designated greater curvature polyp biopsy. The specimen consists of multiple irregular fragments of light simon soft tissue that in aggregate measure 0.8 x 0.2 x 0.1 cm. The specimen is totally submitted in one cassette. D - Received in fixative is one container labeled with the patient's name and designated distal esophagus biopsy. The specimen consists of multiple irregular fragments of light simon soft tissue that in aggregate measure 2.5 x 0.5 x 0.1 cm. The specimen is totally submitted in one cassette. / SJ:reza 10/07/2023 TC:2 CPT: 86323 x4, 21014 x2
--- NOTE | 2023-10-07 10:38 | OP.CCLET_ITS ---
10/07/2023 Emery Jacobsen [address] [place] [address] Re : Upper GI endoscopy procedure for Marc Fofana Dear Dr. Jacobsen This procedure was performed on Saturday, October 07, 2023. My impressions and recommendations are as follows: Impressions : - Severe reflux esophagitis with bleeding. Rule out Moreno's esophagus. Length 4 to 5 cm. Biopsied. - 3 cm hiatal hernia. - Multiple gastric polyps. Resected and retrieved. - Erythematous mucosa in the antrum. Biopsied. - Normal examined duodenum. Biopsied. Recommendations : - Discharge patient to home. - Resume previous diet. - Continue present medications. - Follow an antireflux regimen. - Use Prilosec (omeprazole) 40 mg PO daily. - Telephone my office for pathology results in 1 week. Patient has very severe reflux esophagitis of the distal esophagus with a 3 cm hiatal hernia and at least an additional 4 to 5 cm of inflammatory change. Medication will be initiated. Multiple biopsies particularly taken of the distal esophagus pending. Further instructions will be provided. My findings are described in the full procedure note, which is enclosed. If I can be of further assistance, please feel free to contact me at Doctor phone number(s): Work: . Sincerely, Helder Sosa MD 10/07/2023 10:37:54 AM This report has been signed electronically.
--- NOTE | 2023-10-07 10:38 | OP.EGD_ITS ---
Patient Name: Marc Fofana Procedure Date: 10/07/2023 9:33 AM Date of : 1960 Age: 63 Procedure: Upper GI endoscopy Indications: Abnormal CT of the GI tract Providers: Helder Sosa MD Medicines: See the Anesthesia note for documentation of the administered medications Complications: No immediate complications. Procedure: Pre-Anesthesia Assessment: - Prior to the procedure, a History and Physical was performed, and patient medications and allergies were reviewed. The patient's tolerance of previous anesthesia was also reviewed. The risks and benefits of the procedure and the sedation options and risks were discussed with the patient. All questions were answered, and informed consent was obtained. Prior Anticoagulants: The patient has taken no anticoagulant or antiplatelet agents. ASA Grade Assessment: II - A patient with mild systemic disease. After reviewing the risks and benefits, the patient was deemed in satisfactory condition to undergo the procedure. After obtaining informed consent, the endoscope was passed under direct vision. Throughout the procedure, the patient's blood pressure, pulse, and oxygen saturations were monitored continuously. The gastroscope was introduced through the mouth, and advanced to the second part of duodenum. The upper GI endoscopy was accomplished without difficulty. The patient tolerated the procedure well. Scope In: 10:08:37 AM Scope Out: 10:25:27 AM Total Procedure Duration Time 0 hours 16 minutes 50 seconds Findings: Severe esophagitis with bleeding was found 37 cm from the incisors. Biopsies were taken with a cold forceps for histology. A 3 cm hiatal hernia was present. Multiple sessile polyps with no bleeding and no stigmata of recent bleeding were found on the greater curvature of the stomach. The polyp was removed with a cold biopsy forceps. Resection and retrieval were complete. Diffuse mildly erythematous mucosa without bleeding was found in the gastric antrum. Biopsies were taken with a cold forceps for histology. The examined duodenum was normal. Biopsies were taken with a cold forceps for histology. Impression: - Severe reflux esophagitis with bleeding. Rule out Moreno's esophagus. Length 4 to 5 cm. Biopsied. - 3 cm hiatal hernia. - Multiple gastric polyps. Resected and retrieved. - Erythematous mucosa in the antrum. Biopsied. - Normal examined duodenum. Biopsied. Recommendation: - Discharge patient to home. - Resume previous diet. - Continue present medications. - Follow an antireflux regimen. - Use Prilosec (omeprazole) 40 mg PO daily. - Telephone my office for pathology results in 1 week. Patient has very severe reflux esophagitis of the distal esophagus with a 3 cm hiatal hernia and at least an additional 4 to 5 cm of inflammatory change. Medication will be initiated. Multiple biopsies particularly taken of the distal esophagus pending. Further instructions will be provided. Procedure Code(s): --- Professional --- 26866, Esophagogastroduodenoscopy, flexible, transoral; with biopsy, single or multiple Diagnosis Code(s): --- Professional --- K21.01, Gastro-esophageal reflux disease with esophagitis, with bleeding K44.9, Diaphragmatic hernia without obstruction or gangrene K31.7, Polyp of stomach and duodenum K31.89, Other diseases of stomach and duodenum R93.3, Abnormal findings on diagnostic imaging of other parts of digestive tract CPT copyright 2021 [employer]. All rights reserved. The codes documented in this report are preliminary and upon electronic components assembler review may be revised to meet current compliance requirements. Helder Sosa MD 10/07/2023 10:37:54 AM This report has been signed electronically. Number of Addenda: 0 Note Initiated On: 10/07/2023 9:33 AM
== END 2023-10-07 11:25 | disposition home or self-care (01) ==
LOC: EN 09:29 → AC 09:30
PROVIDERS: PCP Family Medicine; Referring Provider Family Medicine; Visit Provider Surgery
PROC: 0DJ08ZZ Inspection of Upper Intestinal Tract, Via Natural or Artificial Opening Endoscopic (ICD-10-PCS; CPT 43235; principal; 2023-10-07 10:25)
DX: K29.50 Unspecified chronic gastritis without bleeding (principal); K21.00 Gastro-esophageal reflux disease with esophagitis, without bleeding; K44.9 Diaphragmatic hernia without obstruction or gangrene; I10 Essential (primary) hypertension; K25.3 Acute gastric ulcer without hemorrhage or perforation; K25.7 Chronic gastric ulcer without hemorrhage or perforation; K31.89 Other diseases of stomach and duodenum; Z79.82 Long term (current) use of aspirin; Z79.899 Other long term (current) drug therapy; Z87.891 Personal history of nicotine dependence; Z80.0 Family history of malignant neoplasm of digestive organs
CPT/HCPCS: 43239; 81002; 88305; 88313; 88341; 88342; J7120; J2405

== ENCOUNTER 2023-12-29 06:55 | Day surgery (SDC) | payer MEDICARE, SELFPAY ==
--- NOTE | 2023-12-29 07:15 | PCM.HP.BLA ---
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 Cosmetology Required: No Is patient in pain?: No Allergies No Known Allergies Allergy (Verified 11/30/23 13:15) Medications aspirin 81 mg tablet,delayed release (Adult Aspirin Regimen) 81 mg PO DAILY 11/25/21 [History Confirmed 11/30/23] lisinopril 20 mg-hydrochlorothiazide 12.5 mg tablet 1 tab PO DAILY 11/25/21 [History Confirmed 11/30/23] omeprazole 40 mg capsule,delayed release 40 mg PO DAILY Acid reflux #90 caps 11/30/23 [Rx Confirmed 11/30/23] [facility] Medical History (Updated 11/30/23 @ 13:13 by Nesha Cowan) Abnormal CT lung screening Alcohol use Former smoker Gastric reflux Heartburn History of malignant melanoma History of malignant melanoma of skin Hypertension Psoriasis Reflux esophagitis Wears glasses Surgical History (Updated 11/30/23 @ 13:14 by Nesha Cowan) History of colonoscopy History of esophagogastroduodenoscopy (EGD) History of removal of skin mole History of tonsillectomy Family History Father Hypertension Heart disease CVA (cerebral vascular accident)Mother Hypertension Cancer skinUncle Colon cancer Social History Smoking Status: Former smoker alcohol intake: current substance use type: does not use HPI HPI HPI: 63-year-old gentleman. I have most recently assisted him on October 07, 2023. I performed a esophagogastroduodenoscopy with biopsy. Severe esophagitis with bleeding was found. A 3 cm hiatal hernia was seen. There were multiple sessile polyps of the greater curvature of the stomach. There was gastric metaplasia in the duodenum. I recommended to him omeprazole 40 mg twice daily for 2 to 3 weeks with conversion back then to daily. I recommended that he return to see me in 2 months. We would then plan to do a repeat upper endoscopy at 3 months. I additionally suggested if he have breakthrough symptoms that we initiate Carafate therapy. On pathology he had severe acute and chronic inflammation of the distal esophagus. He has been very strict with the diet and avoidance of reflux inducing foods. He has ceased all alcohol. He has not been eating within 3 hours of going to sleep. He is raise the head of his bed. He has been relentless with the nonoperative management. He states that he is not had a single episode of requiring additional antacids since his upper scope. ROS General General: No weight change, appetite, fatigue, colon cancer, breast cancer or weakness HEENT HEENT: No difficulty swallowing, eye injury, eye surgery, swollen glands or hoarseness Endo Endocrine: No thyroid disease, diabetes mellitus, thyroid cancer, Hair loss, heat intolerance or cold intolerance Skin Skin: No rash or changing moles Breast Breast: No left breast lump, right breast lump, nipple discharge, breast pain, abnormal mammogram, abnormal US or breast enlargement Musc Musculoskeletal: No back problems, arthritis, rheumatoid arthritis, gout or joint pain Cardio Cardiovascular: No murmur, pacemaker, heart disease, atrial fibrillation, high blood pressure, heart attack, heart stent, palpitations, shortness of breat with exertion or chest pain Psych Psychiatric: No depression, anxiety or hearing voices Resp Respiratory: No shortness of breath, No sleep apnea, No cough, No COPD, No asthma, No emphysema and No wheezing Gastro Gastrointestinal: No abdominal pain, No nausea or vomiting, No diarrhea, No constipation, No blood in stool, No acid reflux, No hemorrhoids, No ulcers, No gallbladder problem and No black,tarry stools [place]ylor Hematologic: No blood thinners, No blood disorders, No bleeding, No anemia and No blood clots Neuro Neurologic: No system reviewed and no additional complaints, except as documented, No as per HPI, No abnormal gait, No abnormal hearing, No abnormal movements, No abnormal speech, No behavioral changes, No burning sensations, No confusion, No convulsions, No disequilibrium, No dizziness, No localized weakness, No frequent falls, No headache(s), No lack of coordination, No loss of vision, No memory loss, No numbness, No other visual disturbances, No radicular pain, No restless legs, No sensory deficit, No syncope, No tingling, No tremor(s), No weakness and No other Exam Const General: cooperative, healthy appearing and comfortable Nutritional Appearance: average body habitus [facility] Head: normal to inspection Eyes General: appearance normal, both eyes and all related structures Chest Chest palpation & inspection: normal inspection of the chest Resp Effort & Inspection: normal respiratory effort Auscultation: clear to auscultation bilaterally Cardio Rate: regular rate Rhythm: regular rhythm GI Palpation: soft and no hepatosplenomegaly Musc Cervical Spine: normal cervical lordosis Skin General: no rashes or lesions noted Neuro General: patient alert and patient awake Extrem General: no calf tenderness Psych Appearance: grossly normal Assessment and Plan Assessment and Plan (1) Reflux esophagitis: Status: Acute Qualifiers: Esophagitis bleeding: without hemorrhage Qualified Code(s): K21.00 - Gastro-esophageal reflux disease with esophagitis, without bleeding Plan: 63-year-old gentleman who seems to be making excellent improvement on the omeprazole 40 mg daily and strict observance of conservative measures. Because of the severity of his distal esophagitis I do recommend a esophagogastroduodenoscopy with possible biopsy. We then discussed potential to proceed with esophageal manometry with consideration of possible surgical reflux procedure. We did discuss potential of long-term need for proton pump inhibitor therapy in our chart desire to avoid that if possible. We did provide him with a prescription renewal today. He has had an opportunity ask and have questions answered. We will reschedule for an esophagogastroduodenoscopy with biopsy. Subsequent to that if he is completely healed might consider manometry at his discretion. I appreciate the ongoing option of assisting with the surgical care. Copy: Dr. Emery Sosa M.D., F.A.C.S. Medications: New omeprazole 40 mg PO DAILY 90 caps 1RF Acid reflux K21.00 - Gastro-esophageal reflux disease with esophagitis, without bleeding I have examined the patient and the H&P has been reviewed. There are no clinical changes since date of exam. Helder Sosa M.D., F.A.C.S.
[2023-12-29] MEDS: Lactated Ringers 1,000 ML 15 ML IV (07:22)
[2023-12-29 07:23] VITALS: BP 133/74; PULSE 58; RESP 18; TEMP 36.5; O2SAT 100; BMI 25.0
--- NOTE | 2023-12-29 08:00 | IMM_PTH ---
PATHOLOGY RESULTS PATIENT: KAREL CASH LOC: EN U#:[id number] AGE/SX: 63/M ROOM: RE12/29/[address]: Dr. Helder Sosa MD : 1960 BED: DIS: 12/29/2023 SPEC #: [id number] RECD: 12/29/23 13:10 STATUS: ANDREW JAMES #: [id number] PASCALE: 12/29/23 08:[address]: Helder Sosa DEPT: IMMUNOHISTOCHEMISTRY RECD BY: Megan Stearns ENTERED: 12/29/23 13:11 SP TYPE: IMMUNO OTHR DR: Dr. Emery Jacobsen DO Tissues: Stomach, NOS Esophagus, NOS Procedures: H Pylori (initial) P53 (initial) KI-67 (add) PHYSICIAN & INSTITUTION [place] [address] SPECIMEN INFORMATION: Tissue Source: A - Antrum, B - Distal esophagus Clinical Info: Reflux esophagitis Specimen Number: [id number] A & B CPT code: 94566 x2, 97260 METHODOLOGY: Deparaffinized sections of prefer/formalin-fixed tissue or PAP/DQ stained slides are incubated with monoclonal/polyclonal antibodies/oligonucleotide probes. Localization is made via biotin free immunoperoxidase method. Appropriate controls are performed and reacted as expected. Results on target cell population are indicated in the following table: RESULTS: ANTIBODY / CLONE RESULT Block A H Pylori (polyclonal) negative Block B P53 (DO-7) positive, wild type pattern Ki-67 (30-9) positive, low These tests were developed and their performance characteristics determined by [facility]. They may not have been cleared or approved by the U.S. Food and Drug Administration. The FDA has determined that such clearance or approval is not necessary. The above immunohistochemical/dualISH markers are ordered and reviewed by the Pathologist. INTERPRETATION: A. Antrum, biopsy: Negative for Helicobacter pylori organisms. B. Distal esophagus, biopsy: No evidence of dysplasia. AM:reza 12/31/2023
--- NOTE | 2023-12-29 08:00 | EGD_PTH ---
PATHOLOGY RESULTS PATIENT: KAREL CASH LOC: EN U#:[id number] AGE/SX: 63/M ROOM: RE12/29/[address]: Dr. Helder Sosa MD : 1960 BED: DIS: 12/29/2023 SPEC #: [id number] RECD: 12/29/23 11:34 STATUS: ANDREW RAMIREZ #: [id number] PASCALE: 12/29/23 08:[address]: Helder Sosa DEPT: SURGICAL PATHOLOGY RECD BY: Leah Carter ENTERED: 12/29/23 11:34 SP TYPE: EGD BIOPSY OTHR DR: Dr. Emery Jacobsen DO Tissues: Gastric mucous membrane Esophageal mucous membrane Procedures: Special Stain Group II Surgery Specimen Level IV Alcian Blue/PAS (control) HEADER OPERATION: EGD, biopsy PRE-OP DIAGNOSIS: Reflux esophagitis TISSUE SUBMITTED: A - Antrum biopsy for histo and H. pylori, B - Distal esophagus biopsy MICROSCOPIC DIAGNOSIS A. Gastric antrum, biopsy: Chronic active gastritis. See comment. B. Distal esophagus, biopsy: Gastroesophageal junctional mucosa with chronic inflammation. 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 Focal changes of reflux. No evidence of dysplasia. See comment. AM:reza 12/30/2023 COMMENT A. The results of immunohistochemistry for Helicobacter pylori will be reported separately ([id number]). B. Immunohistochemistry ([id number]) for P53 and Ki-67 will be performed and results will be reported separately. Alcian blue/PAS stain with matched control supports the above diagnosis. MICROSCOPIC DESCRIPTION Slides are reviewed. GROSS DESCRIPTION A - Received in fixative is one container labeled with the patient's name and designated antrum biopsy. The specimen consists of one irregular fragment of light simon soft tissue that measures 0.4 x 0.4 x 0.1 cm. The specimen is totally submitted in one cassette. B - Received in fixative is one container labeled with the patient's name and designated distal esophagus biopsy. The specimen consists of multiple irregular fragments of light simon soft tissue that in aggregate measure 2.5 x 0.5 x 0.1 cm. The specimen is totally submitted in one cassette. / JANE:reza 12/29/2023 TC:2 CPT: 06108 x2, 74207
[2023-12-29 08:07] VITALS: BP 133/74; BP 88/49; PULSE 52; RESP 18; TEMP 36.8; O2SAT 93
--- NOTE | 2023-12-29 08:07 | OP.EGD_ITS ---
Patient Name: Marc Fofana Procedure Date: 12/29/2023 7:43 AM Date of : 1960 Age: 63 Procedure: Upper GI endoscopy Indications: Follow-up of gastro-esophageal reflux disease Providers: Helder Sosa MD Referring MD: Emery Jacobsen Medicines: See the Anesthesia note for documentation of the administered medications Complications: No immediate complications. Procedure: Pre-Anesthesia Assessment: - Prior to the procedure, a History and Physical was performed, and patient medications and allergies were reviewed. The patient's tolerance of previous anesthesia was also reviewed. The risks and benefits of the procedure and the sedation options and risks were discussed with the patient. All questions were answered, and informed consent was obtained. Prior Anticoagulants: The patient has taken no anticoagulant or antiplatelet agents. ASA Grade Assessment: II - A patient with mild systemic disease. After reviewing the risks and benefits, the patient was deemed in satisfactory condition to undergo the procedure. After obtaining informed consent, the endoscope was passed under direct vision. Throughout the procedure, the patient's blood pressure, pulse, and oxygen saturations were monitored continuously. The gastroscope was introduced through the mouth, and advanced to the second part of duodenum. The upper GI endoscopy was accomplished without difficulty. The patient tolerated the procedure well. Scope In: 7:51:22 AM Scope Out: 8:01:34 AM Total Procedure Duration Time 0 hours 10 minutes 12 seconds Findings: There were esophageal mucosal changes suspicious for short-segment Moreno's esophagus present in the lower third of the esophagus. The maximum longitudinal extent of these mucosal changes was 3 cm in length. Mucosa was biopsied with a cold forceps for histology in 4 quadrants in the lower third of the esophagus. One specimen bottle was sent to pathology. The Z-line was irregular and was found 40 cm from the incisors. A medium-sized hiatal hernia was present. Localized moderately erythematous mucosa without bleeding was found in the gastric antrum. Biopsies were taken with a cold forceps for histology. The examined duodenum was normal. Impression: - Esophageal mucosal changes suspicious for short-segment Moreno's esophagus. Biopsied. - Z-line irregular, 40 cm from the incisors. - Medium-sized hiatal hernia. - Erythematous mucosa in the antrum. Biopsied. - Normal examined duodenum. Recommendation: - Discharge patient to home. - Resume previous diet. - Continue present medications. - Return to my office in 2 weeks. Consider manometry and possible surgical reflux procedure Procedure Code(s): --- Professional --- 08947, Esophagogastroduodenoscopy, flexible, transoral; with biopsy, single or multiple Diagnosis Code(s): --- Professional --- K22.89, Other specified disease of esophagus K44.9, Diaphragmatic hernia without obstruction or gangrene K31.89, Other diseases of stomach and duodenum K21.9, Gastro-esophageal reflux disease without esophagitis CPT copyright 2021 [employer]. All rights reserved. The codes documented in this report are preliminary and upon machine engraver review may be revised to meet current compliance requirements. Helder Sosa MD 12/29/2023 8:06:56 AM This report has been signed electronically. Number of Addenda: 0 Note Initiated On: 12/29/2023 7:43 AM
--- NOTE | 2023-12-29 08:07 | OP.CCLET_ITS ---
12/29/2023 Emery Jacobsen [address] [place] [address] Re : Upper GI endoscopy procedure for Marc Espositobestnj Dear Dr. Jacobsen This procedure was performed on Friday, December 29, 2023. My impressions and recommendations are as follows: Impressions : - Esophageal mucosal changes suspicious for short-segment Moreno's esophagus. Biopsied. - Z-line irregular, 40 cm from the incisors. - Medium-sized hiatal hernia. - Erythematous mucosa in the antrum. Biopsied. - Normal examined duodenum. Recommendations : - Discharge patient to home. - Resume previous diet. - Continue present medications. - Return to my office in 2 weeks. Consider manometry and possible surgical reflux procedure My findings are described in the full procedure note, which is enclosed. If I can be of further assistance, please feel free to contact me at Doctor phone number(s): Work: . Sincerely, Helder Sosa MD 12/29/2023 8:06:56 AM This report has been signed electronically.
[2023-12-29 08:10] VITALS: BP 133/74; BP 90/49; PULSE 52; RESP 18; O2SAT 93
[2023-12-29 08:15] VITALS: BP 133/74; BP 93/57; PULSE 50; RESP 16; O2SAT 93
[2023-12-29 08:20] VITALS: BP 130/73; BP 133/74; PULSE 51; RESP 18; TEMP 36.4; O2SAT 97
[2023-12-29 08:40] VITALS: BP 133/74
== END 2023-12-29 08:51 | disposition home or self-care (01) ==
LOC: EN 06:57 → AC 06:58
PROVIDERS: PCP Family Medicine; Referring Provider Family Medicine; Visit Provider Surgery
PROC: 0DJ08ZZ Inspection of Upper Intestinal Tract, Via Natural or Artificial Opening Endoscopic (ICD-10-PCS; CPT 43235; principal; 2023-12-29 07:55)
DX: K29.50 Unspecified chronic gastritis without bleeding (principal); K44.9 Diaphragmatic hernia without obstruction or gangrene; K31.7 Polyp of stomach and duodenum; K21.00 Gastro-esophageal reflux disease with esophagitis, without bleeding; I10 Essential (primary) hypertension; K31.89 Other diseases of stomach and duodenum; Z87.891 Personal history of nicotine dependence; Z79.82 Long term (current) use of aspirin; Z79.899 Other long term (current) drug therapy; Z80.0 Family history of malignant neoplasm of digestive organs
CPT/HCPCS: 43239; 88305; 88313; 88341; 88342; J7120; J2405

== ENCOUNTER → 2024-01-15 | Day surgery (SDC) | payer MEDICARE, SELFPAY ==
[2024-01-15] MEDS: Lidocaine Jelly 2% 20 ML Syringe (URO-JET) 1 APPLIC (07:42)
[2024-01-15 07:45] VITALS: BP 139/78; PULSE 70; RESP 16; TEMP 36.4; O2SAT 100
== END | disposition home or self-care (01) ==
LOC: EN 07:31
PROVIDERS: PCP Family Medicine; Referring Provider Family Medicine; Visit Provider Surgery
PROC: F00ZJWZ Instrumental Swallowing and Oral Function Assessment using Swallowing Equipment (ICD-10-PCS; CPT 43235; principal; 2024-01-15 07:10)
DX: R13.10 Dysphagia, unspecified (principal)
CPT/HCPCS: 91010

== ENCOUNTER → 2024-03-09 | Outpatient (CLI) | payer MEDICARE, SELFPAY ==
[2024-03-09 18:55] LABS: ALB/GLOB Ratio 0.9 RATIO (0.9-2.4); AST(SGOT) 20 U/L (15-37); Alanine Aminotransfer ALT/SGPT 23 U/L (16-61); Albumin, Serum 3.6 g/dL (3.2-5.0); Alkaline Phosphatase 113 U/L (45-117); Anion Gap 8 (5-15); BUN 51 mg/dL (7-18); BUN/Creat Ratio 22.2 RATIO (10-20); Calcium,Total 9.2 mg/dL (8.5-10.1); Chloride 109 mmol/L (98-107); EST Glomerular Filtration Rate 30 mL/min (>60); Est Glom Filt Rate - Afr Amer 37 mL/min (>60); Globulin 4.2 g/dL (2.2-4.2); Glucose 110 mg/dL (74-106); Potassium 4.5 mmol/L (3.5-5.1); Protein, Total 7.8 g/dL (6.4-8.2); Sodium Level 137 mmol/L (136-145)
[2024-03-11 15:08] LABS: PROEL- A/G Ratio 1.1 (0.7-1.7); PROEL- Albumin 3.6 g/dL (2.9-4.4); PROEL- Alpha-1 Globulin 0.4 g/dL (0.0-0.4); PROEL- Globulin, Total 3.3 g/dL (2.2-3.9); PROEL- TOTAL PROTEIN 6.9 g/dL (6.0-8.5); PROEL-M-Spike Not Observed g/dL (Not Observed)
== END | disposition home or self-care (01) ==
LOC: BFHLAB 13:45
PROVIDERS: PCP Family Medicine; Visit Provider Family Medicine
DX: R79.89 Other specified abnormal findings of blood chemistry (principal)
CPT/HCPCS: 80053; 81002; 82043; 82570; 84165; 84166

== ENCOUNTER → 2024-03-10 | Outpatient (CLI) | payer MEDICARE, SELFPAY ==
[2024-03-10 12:27] LABS: Color, Urine Yellow (Yellow); Glucose, Dipstick Normal (Normal); Ketone-Dipstick Negative (Negative); Leukocyte Esterase-Dipstick 25 /ul (Negative); Nitrite-Dipstick Negative (Negative); Occult Blood-Urine Negative /ul (Negative); Protein-Dipstick Negative (Negative); Specific Gravity, Urine 1.015 (1.002-1.030); Urine Bilirubin Dipstick Negative (Negative); Urine Clarity Clear (Clear); Urine Urobilinogen Normal (Normal)
[2024-03-10 13:23] LABS: Microalbumin,Random Urine 38.7 mg/L (NO RANGE EST.); Microalbumin:Creatinine Ratio 28.7 mg/g CRE (<30 mg/g CRE)
[2024-03-14 16:56] LABS: PROELU- Albumin, Urine 36.9 % (.); PROELU- Alpha-1-Globulin,Ur 1.3 % (.); PROELU- Beta Globulin, Ur 26.9 % (.); PROELU- Gamma Globulin, Ur 22.9 % (.); Total Protein, Ur 17.8 mg/dL (Not Estab.)
== END | disposition home or self-care (01) ==
LOC: LABSPEC 08:42
PROVIDERS: PCP Family Medicine; Referring Provider Family Medicine; Visit Provider Family Medicine
DX: R79.89 Other specified abnormal findings of blood chemistry (principal)
CPT/HCPCS: 81002; 82043; 82570; 84166

== ENCOUNTER 2024-03-14 05:57 | Day surgery (SDC) | payer MEDICARE, SELFPAY ==
[2024-03-08 09:25] LABS: Hematocrit 37.2 % (40-54); Hemoglobin 12.5 g/dL (13.0-16.5); Mean Corp Hgb Conc 33.6 g/dL (32-36); Mean Corpuscular Hgb 31.7 pg (27.0-32.0); Mean Corpuscular Volume 94.4 fL (80-94); Platelet Count 240 K/mm3 (150-450); RBC Distribution Width CV 13.2 % (11.6-14.6); RBC Distribution Width SD 45.6 fl (35.1-43.9); Red Blood Count 3.94 M/mm3 (4.6-6.2); White Blood Count 9.3 K/mm3 (4.4-11.0)
[2024-03-08 09:56] LABS: Anion Gap 5 (5-15); BUN 50 mg/dL (7-18); BUN/Creat Ratio 18.5 RATIO (10-20); Calcium,Total 8.9 mg/dL (8.5-10.1); Chloride 111 mmol/L (98-107); Creatinine, Serum 2.71 mg/dL (0.70-1.30); EST Glomerular Filtration Rate 25 mL/min (>60); Est Glom Filt Rate - Afr Amer 30 mL/min (>60); Glucose 82 mg/dL (74-106); Potassium 4.4 mmol/L (3.5-5.1); Sodium Level 137 mmol/L (136-145)
[2024-03-14] VITALS (9 sets, daily range): BP systolic 109–140; BP diastolic 62–80; PULSE 56–68; RESP 16–18; TEMP 36–36.7; O2SAT 92–100; BMI 23.6
--- NOTE | 2024-03-14 | EGD_PTH ---
PATIENT: KAREL CASH LOC: [facility] [place] U#:[id number] AGE/SX: 63/M ROOM: RE03/14/[address]: Dr. Helder Sosa MD : 1960 BED: DIS: 03/14/2024 SPEC #: [id number] RECD: 03/14/24 13:50 STATUS: ANDREW RAMIREZ #: [id number] PASCALE: 03/14/24 00:[address]: Helder Sosa DEPT: SURGICAL PATHOLOGY RECD BY: Dylan Treviño ENTERED: 03/14/24 13:50 SP TYPE: EGD BIOPSY OTHR DR: Dr. Emery Jacobsen, DO Tissues: Esophageal mucous membrane Procedures: Surgery Specimen Level IV HEADER OPERATION: Laparoscopic, toupet, EGD PRE-OP DIAGNOSIS: Reflux esophagitis TISSUE SUBMITTED: Hiatal hernia sac MICROSCOPIC DIAGNOSIS Hiatal hernia, herniorrhaphy: Fragments of fibrofatty and fibrovascular tissue with vascular congestion. / 03/15/2024 MICROSCOPIC DESCRIPTION Slides are reviewed. GROSS DESCRIPTION Received in fixative is one container labeled with the patient's name and designated Hiatal hernia sac. The specimen consists of multiple irregular fragments of pink-yellow fibrofatty tissue measuring in aggregate 5.0 x 4.0 x 1.0cm. Serial sections do not reveal mass lesions. All Source Analyst sections are submitted in one cassette. / 03/14/2024 TC:5 CPT:63187
--- NOTE | 2024-03-14 06:10 | PCM.HP.BLA ---
History and Physical Date of Admission: 03/14/24 Allergies No Known Allergies Allergy (Verified 01/28/24 07:42) Medications aspirin 81 mg tablet,delayed release (Adult Aspirin Regimen) 81 mg PO DAILY 11/25/21 [History Confirmed 01/28/24] lisinopril 20 mg-hydrochlorothiazide 12.5 mg tablet 1 tab PO DAILY 11/25/21 [History Confirmed 01/28/24] omeprazole 40 mg capsule,delayed release 40 mg PO DAILY Acid reflux #90 caps 11/30/23 [Rx Confirmed 01/28/24] tamsulosin 0.4 mg capsule 0.4 mg PO Q24H 12/23/23 [History Confirmed 01/28/24] PFSH Medical History Abnormal CT lung screening Alcohol use Former smoker Gastric reflux Heartburn History of malignant melanoma History of malignant melanoma of skin Hypertension Psoriasis Reflux esophagitis Wears glasses Surgical History History of colonoscopy History of esophagogastroduodenoscopy (EGD) History of removal of skin mole History of tonsillectomy Family History Father Hypertension Heart disease CVA (cerebral vascular accident)Mother Hypertension Cancer skinUncle Colon cancer Social History Smoking Status: Former smoker alcohol intake: current substance use type: does not use HPI HPI HPI: 63-year-old gentleman returns to discuss findings of his upper endoscopy and subsequent esophageal manometry studies The patient's upper endoscopy that I assisted him with on December 29, 2023 demonstrated short segment Moreno's esophagus lower third over 3 cm length. Reflux esophagitis. A medium size hiatal hernia. Pathology was consistent with Moreno's esophagus without dysplasia. Evidence of reflux esophagitis. Chronic active gastritis. H. pylori was negative. The esophageal manometry that was performed on January 15, 2024 suggest that all swallows were weak with an ineffective bolus clearance and lower third of the esophagus. The LES tone was normal. Relaxation tone is normal. The interpretation was ineffective esophageal motility. The patient himself to not have any particular swallowing issues. He is able to swallow what foods dry foods solid foods without apparent difficulty. He tolerated the manometry well however I believe that the results are out of sync with the patient's clinical situation. My previous notes reflect the following It Investment/Portfolio Manager Required: No Is patient in pain?: No Allergies No Known Allergies Allergy (Verified 11/30/23 13:15) Medications aspirin 81 mg tablet,delayed release (Adult Aspirin Regimen) 81 mg PO DAILY 11/25/21 [History Confirmed 11/30/23] lisinopril 20 mg-hydrochlorothiazide 12.5 mg tablet 1 tab PO DAILY 11/25/21 [History Confirmed 11/30/23] omeprazole 40 mg capsule,delayed release 40 mg PO DAILY Acid reflux #90 caps 11/30/23 [Rx Confirmed 11/30/23] PFSH Medical History (Updated 11/30/23 @ 13:13 by Nesha Cowan) Abnormal CT lung screening Alcohol use Former smoker Gastric reflux Heartburn History of malignant melanoma History of malignant melanoma of skin Hypertension Psoriasis Reflux esophagitis Wears glasses Surgical History (Updated 11/30/23 @ 13:14 by Nesha Cowan) History of colonoscopy History of esophagogastroduodenoscopy (EGD) History of removal of skin mole History of tonsillectomy Family History Father Hypertension Heart disease CVA (cerebral vascular accident)Mother Hypertension Cancer skinUncle Colon cancer Social History Smoking Status: Former smoker alcohol intake: current substance use type: does not use HPI HPI HPI: 63-year-old gentleman. I have most recently assisted him on October 07, 2023. I performed a esophagogastroduodenoscopy with biopsy. Severe esophagitis with bleeding was found. A 3 cm hiatal hernia was seen. There were multiple sessile polyps of the greater curvature of the stomach. There was gastric metaplasia in the duodenum. I recommended to him omeprazole 40 mg twice daily for 2 to 3 weeks with conversion back then to daily. I recommended that he return to see me in 2 months. We would then plan to do a repeat upper endoscopy at 3 months. I additionally suggested if he have breakthrough symptoms that we initiate Carafate therapy. On pathology he had severe acute and chronic inflammation of the distal esophagus. He has been very strict with the diet and avoidance of reflux inducing foods. He has ceased all alcohol. He has not been eating within 3 hours of going to sleep. He is raise the head of his bed. He has been relentless with the nonoperative management. He states that he is not had a single episode of requiring additional antacids since his upper scope. ROS General General: No weight change, appetite, fatigue, colon cancer, breast cancer or weakness HEENT HEENT: No difficulty swallowing, eye injury, eye surgery, swollen glands or hoarseness Endo Endocrine: No thyroid disease, diabetes mellitus, thyroid cancer, Hair loss, heat intolerance or cold intolerance Skin Skin: No rash or changing moles Breast Breast: No left breast lump, right breast lump, nipple discharge, breast pain, abnormal mammogram, abnormal US or breast enlargement Musc Musculoskeletal: No back problems, arthritis, rheumatoid arthritis, gout or joint pain Cardio Cardiovascular: No murmur, pacemaker, heart disease, atrial fibrillation, high blood pressure, heart attack, heart stent, palpitations, shortness of breat with exertion or chest pain Psych Psychiatric: No depression, anxiety or hearing voices Resp Respiratory: No shortness of breath, No sleep apnea, No cough, No COPD, No asthma, No emphysema and No wheezing Gastro Gastrointestinal: No abdominal pain, No nausea or vomiting, No diarrhea, No constipation, No blood in stool, No acid reflux, No hemorrhoids, No ulcers, No gallbladder problem and No black,tarry stools Tylor Hematologic: No blood thinners, No blood disorders, No bleeding, No anemia and No blood clots Neuro Neurologic: No system reviewed and no additional complaints, except as documented, No as per HPI, No abnormal gait, No abnormal hearing, No abnormal movements, No abnormal speech, No behavioral changes, No burning sensations, No confusion, No convulsions, No disequilibrium, No dizziness, No localized weakness, No frequent falls, No headache(s), No lack of coordination, No loss of vision, No memory loss, No numbness, No other visual disturbances, No radicular pain, No restless legs, No sensory deficit, No syncope, No tingling, No tremor(s), No weakness and No other Exam Const General: cooperative, healthy appearing and comfortable Nutritional Appearance: average body habitus [facility] Head: normal to inspection Eyes General: appearance normal, both eyes and all related structures Chest Chest palpation & inspection: normal inspection of the chest Resp Effort & Inspection: normal respiratory effort Auscultation: clear to auscultation bilaterally Cardio Rate: regular rate Rhythm: regular rhythm GI Palpation: soft and no hepatosplenomegaly Musc Cervical Spine: normal cervical lordosis Skin General: no rashes or lesions noted Neuro General: patient alert and patient awake Extrem General: no calf tenderness Psych Appearance: grossly normal Assessment and Plan Assessment and Plan (1) Reflux esophagitis: Status: Acute Qualifiers: Esophagitis bleeding: without hemorrhage Qualified Code(s): K21.00 - Gastro-esophageal reflux disease with esophagitis, without bleeding Plan: 63-year-old gentleman who seems to be making excellent improvement on the omeprazole 40 mg daily and strict observance of conservative measures. Because of the severity of his distal esophagitis I do recommend a esophagogastroduodenoscopy with possible biopsy. We then discussed potential to proceed with esophageal manometry with consideration of possible surgical reflux procedure. We did discuss potential of long-term need for proton pump inhibitor therapy in our chart desire to avoid that if possible. We did provide him with a prescription renewal today. He has had an opportunity ask and have questions answered. We will reschedule for an esophagogastroduodenoscopy with biopsy. Subsequent to that if he is completely healed might consider manometry at his discretion. I appreciate the ongoing option of assisting with the surgical care. Copy: Dr. Emery REED General General: No weight change, appetite, fatigue, colon cancer, breast cancer or weakness HEENT HEENT: No difficulty swallowing, eye injury, eye surgery, swollen glands or hoarseness Endo Endocrine: No thyroid disease, diabetes mellitus, thyroid cancer, Hair loss, heat intolerance or cold intolerance Skin Skin: No rash or changing moles Breast Breast: No left breast lump, right breast lump, nipple discharge, breast pain, abnormal mammogram, abnormal US or breast enlargement Musc Musculoskeletal: No back problems, arthritis, rheumatoid arthritis, gout or joint pain Cardio Cardiovascular: No murmur, pacemaker, heart disease, atrial fibrillation, high blood pressure, heart attack, heart stent, palpitations, shortness of breat with exertion or chest pain Psych Psychiatric: No depression, anxiety or hearing voices Resp Respiratory: No shortness of breath, No sleep apnea, No cough, No COPD, No asthma, No emphysema and No wheezing Gastro Gastrointestinal: No abdominal pain, No nausea or vomiting, No diarrhea, No constipation, No blood in stool, No acid reflux, No hemorrhoids, No ulcers, No gallbladder problem and No black,tarry stools Tylor Hematologic: No blood thinners, No blood disorders, No bleeding, No anemia and No blood clots Neuro Neurologic: No system reviewed and no additional complaints, except as documented, No as per HPI, No abnormal gait, No abnormal hearing, No abnormal movements, No abnormal speech, No behavioral changes, No burning sensations, No confusion, No convulsions, No disequilibrium, No dizziness, No localized weakness, No frequent falls, No headache(s), No lack of coordination, No loss of vision, No memory loss, No numbness, No other visual disturbances, No radicular pain, No restless legs, No sensory deficit, No syncope, No tingling, No tremor(s), No weakness and No other Assessment and Plan Assessment and Plan (1) Reflux esophagitis: Status: Acute Qualifiers: Esophagitis bleeding: without hemorrhage Qualified Code(s): K21.00 - Gastro-esophageal reflux disease with esophagitis, without bleeding (2) Moreno's esophagus determined by biopsy: Status: Acute (3) Hiatal hernia: Status: Acute Plan: Today was a [id number] consultative appointment regarding treatment options. The patient's been on long-term proton pump inhibitors and despite that has evidence of reflux esophagitis and short segment Moreno's esophagus albeit without dysplasia. We discussed ongoing PPI therapy. With the Moreno's I do not believe that we can back down to an H2 kelly therapy. We then discussed surgical treatment options and discussed in particular laparoscopic Inez fundoplication and laparoscopic toupet procedures. Because of the abnormal manometry I am recommending a laparoscopic toupet procedure. We discussed the technique the benefits the risk complications and alternatives. We did discuss durability. We are hopeful to be able to get him off reflux medications subsequent to the procedure or if not completely off being able to convert to an H2 kelly. He has had an opportunity to ask and have questions answered. He has been provided postoperative dietary and physical limitation instruction sheets. He is interested in scheduling and proceeding at our discretion. I appreciate the ongoing opportunity of assisting with the surgical care. Copy: Dr. Emery Sosa M.D., F.A.C.S. The patient presents to pursue a laparoscopic repair of his hiatal hernia today with a laparoscopic toupet procedure. He is aware of the technique, benefit, risk, alternatives. He has had an opportunity to ask and have questions answered. We will proceed as noted. The patient had a slightly elevated creatinine on preoperative laboratories. He was reevaluated by Dr. Emery Jacobsen. Repeat labs were improved. This was felt possibly secondary to the patient's omeprazole therapy. It was felt that the patient was stable to proceed with surgical intervention and cease the omeprazole therapy as soon as possible. Helder Sosa M.D., F.A.C.S.
--- NOTE | 2024-03-14 06:11 | EX.PCM.DISCH ---
Discharge Instructions Procedure General Surgery Activity Discharge Activity: May Not Drive (for 3-5 days or while taking narcotic pain medicine.) May shower in (days): 1 Lifting Restrictions: 10 pounds Additional Activity Instructions:: Dietary and activity instructions as provided on information sheets through the office. Dressing / Incision Call your doctor if your incision/area has: Continuous Slow Oozing, Sudden Increased Bleeding, Increased Pain/ Swelling, Increased Redness and Foul Smelling Discharge Call your doctor if you observe: Fever of 101 or Higher Suture Line Care: Avoid Pulling/Pushing and Avoid Pinching/Bending Additional Dressing/Incision Instructions:: Change or remove dressing in 4 days. Leave steri-strips in place for 1 week. Follow Up Care Please Follow Up With: Helder Sosa MD When: Call [phone] to make an appointment to be seen in about 10 days. Test Results: Test results from this visit will be discussed in further detail at your follow-up appointment, if applicable. Discharge Plan Admission Attending Provider: Helder Sosa Primary Care Provider: Emery Jacobsen Instructions Print Language: Macedonian Discharge Orders/Prescriptions Prescriptions: No Action lisinopril-hydrochlorothiazide 20-12.5 mg tablet 1 tab PO DAILY aspirin [Adult Aspirin Regimen] 81 mg tablet,delayed release (DR/EC) 81 mg PO DAILY omeprazole 40 mg capsule,delayed release(DR/EC) 40 mg PO DAILY Qty: 90 1RF tamsulosin 0.4 mg capsule 0.4 mg PO Q24H multivitamin [Daily Multi-Vitamin] Tablet 1 tab PO DAILY fexofenadine [Bianca Allergy] 180 mg tablet 180 mg PO DAILY Referrals / Follow Up: Emery Jacobsen DO [Primary Care Provider] - Disposition Disposition (needs filled in before D/C Order can be placed): Home, Self Care
[2024-03-14] MEDS: Lactated Ringers 1,000 ML 15 ML IV (06:47)
[2024-03-14] MEDS: Cefazolin 2 GM in 0.9% Normal Saline (100mL Bag) 100 ML IV (07:34)
--- NOTE | 2024-03-14 10:28 | OP.PCM_ITS ---
Report of Operation Date of Procedure: 03/14/24 Pre-Operative Diagnosis: Intractable gastroesophageal reflux disease with Colome tt's esophagus and hiatal hernia Post-Operative Diagnosis: Same Surgery/Procedure Performed:: Laparoscopic repair hiatal hernia with laparoscopic toupet procedure and esophagogastroduodenoscopy Description of Surgical Findings:: Timeout informed consent was obtained. 63-year-old gentleman was taken to the operating room placed supine on the table underwent general tracheal intubation anesthesia he was on a beanbag he was then placed in a low lithotomy position careful buttock roll securing was placed. The patient received 2 g of Ancef intravenously. Abdomen was sterilely prepped and draped. Ioban draping was used as well. 0.5% Marcaine was used as a local anesthetic. Throughout the procedure 30 cc was used. Skin sites were anesthetized. A transverse incision was made in the right mid epigastric area and using a 5 mm Visiport technology clean access was gained to the abdomen. The abdomen was insufflated with CO2 to a pressure of 10 mmHg pressure. Under direct visualization a 10 mm trocar was placed on the left mid epigastric area and 2 more 5 mm trocars in the left subcostal area. A 5 mm trocars placed in the epigastrium to assist with placement of a medium Becky retractor which was used to elevate the left lobe of the liver. The pars flaccida was identified this was quite fibrofatty and thick using harmonic scalpel gradually dissected over the anterior surface of the esophagus. The right jayson was completely embedded and fibrofatty tissue and this was carefully dissected free hemostasis obtained with a harmonic scalpel and with the use of a couple Hem-o-sonny clips. Vein went to the lesser curve to find that the fundus was densely adherent to the superior aspect of the spleen. Short gastrics were transected with the harmonic scalpel a Hem-o-sonny clip was placed in addition at the very apex of the spleen the junction was very close. Harmonic scalpel was used to transect then I briefly placed fibular there to assure hemostasis. The stomach was inspected and noted to be completely intact. Elevation then allowed me to use blunt dissection harmonic scalpel dissection to identify the left jayson of the diaphragm I then began some the retroesophageal dissection. Then again gain access to the right side now was able to better to identify the right jayson. Tediously and carefully began posterior dissection until I had tissue elevated with the esophagus and I placed 1/2 inch Salem drain to assist. I then did a circumferential dissection of the distal 6 cm of the esophagus to regain mobility. The posterior vagus nerve was protected with the esophagus. I felt that I had gotten sufficient length with my circumferential dissection and Shahbazef note that the esophagus did not seem to want to lengthen easily. Further dissected the posterior fat pad until I clearly had left jayson right jayson identified with the fat pad freed. I approximated the crura with simple sutures of pledgeted 0 Ethibond. 3 sutures were placed. A 46 Pashto bougie was placed in the esophagus and repair inspected and I felt that I had appropriately repaired. I then took the fundus of the stomach wrapped it posteriorly and secured the posterior aspect of the stomach to the crura. I performed the right component of the toupet using a 2-0 Ethibond securing the esophagus to the epiphrenic clinic to the wrap portion of the stomach and then in a running fashion did approximately 2 and half to 3 cm of wrap. Then tested tension with the left aspect of the fundus and then as similar on the right used a 2-0 Ethibond in a pledgeted fashion to secure the stomach to the esophagus into the epiphrenic ligament and then in a running fashion securing the stomach to the esophagus. This was done in a 270 degree wrap. Superior that I had very nice placement of the wrap portion of the stomach and photographed the final wrap. Inspected for hemostasis. The fibular was subsequently removed his complete hemostasis was intact. The right upper quadrant irrigated aspirated free. I then placed fluid in the upper abdomen. Per the operative note probation inserted a flexible gastroscope that an upper endoscopy there was absolutely no air leak and the wrap portion of the stomach appeared to be intact. Moreno's esophagus was again identified but the scope appeared to slide easily at the EG junction. I then changed out gowns and gloves and went back to the abdomen remove the Becky retractor. The apex of the spleen had a slight dusky area with a very small component. The liver was completely intact. The 10 mm trocar site was closed with a 0 Vicryl in a [id number] style using a grainy needle. Using the 0.5% Marcaine I did a mini subcostal nerve block on the left under laparoscopic visualization. The abdomen now was allowed to deflate of the CO2. The trocars were removed. Skin edges approximated opted for Monocryl subdermal stitches. Steri-Strips Telfa OpSite dressings applied. It is of note that during the procedure I did remove the fragments of the hernia sac with harmonic scalpel and this will be submitted to specimen. Drains none. Blood loss minimal. The patient was taken to the recovery room in satisfied condition without apparent complication Helder Sosa M.D., F.A.C.S. Surgeon: Helder Sosa Type of Anesthesia: General and Local Anesthesiologist: Carlos Choi
[2024-03-14] MEDS: Bupivacaine Mpf 0.5% 30 ML VIAL (10:29)
[2024-03-14] MEDS: HYDROcodone Bitartrate/Apap 5/325 Tablet PO (12:27)
--- NOTE | 2024-03-14 16:18 | SUR.PHASEII ---
16fr garcia inserted, patient tolerated well. drained 550cc clear yellow urine. Instructed patient and significant other on how to empty catheter, how to care for catheter, empty catheter and how to remove catheter by cutting pigtail. Patient and sig other voiced understanding. They are aware to remove catheter early Thu morining (03/16) and to call Dr Lcoke office by noon if unable to void. Also printed out garcia care instructions and garcia dc info from sayra and went over it with patient and sig other. They both state they feel comfortable taking care of catheter and removing catheter on Thu morning.
== END 2024-03-14 16:28 | disposition home or self-care (01) ==
LOC: SDC 05:57 → AC 06:00
PROVIDERS: PCP Family Medicine; Referring Provider Surgery; Visit Provider Surgery
PROC: (CPT 43325; principal; 2024-03-14 07:10)
DX: K22.70 Barrett's esophagus without dysplasia (principal); K44.9 Diaphragmatic hernia without obstruction or gangrene; I10 Essential (primary) hypertension; K21.00 Gastro-esophageal reflux disease with esophagitis, without bleeding; Z79.82 Long term (current) use of aspirin; Z79.899 Other long term (current) drug therapy; Z87.891 Personal history of nicotine dependence; Z80.0 Family history of malignant neoplasm of digestive organs
CPT/HCPCS: 43235; 36415; 80048; 85027; 88305; 93005; J7120; J2405

== ENCOUNTER → 2024-04-20 | Outpatient (CLI) | payer MEDICARE, SELFPAY ==
[2024-04-20 12:44] LABS: Anion Gap 5 (5-15); BUN 23 mg/dL (7-18); BUN/Creat Ratio 17.8 RATIO (10-20); Calcium,Total 9.6 mg/dL (8.5-10.1); Chloride 103 mmol/L (98-107); Creatinine, Serum 1.29 mg/dL (0.70-1.30); EST Glomerular Filtration Rate 59 mL/min (>60); Est Glom Filt Rate - Afr Amer 72 mL/min (>60); Glucose 90 mg/dL (74-106); Potassium 4.4 mmol/L (3.5-5.1); Sodium Level 136 mmol/L (136-145)
== END | disposition home or self-care (01) ==
LOC: LAB.FUTURE 11:01 → BFHLAB 13:34
PROVIDERS: PCP Family Medicine; Referring Provider Family Medicine; Visit Provider Family Medicine
DX: R79.89 Other specified abnormal findings of blood chemistry (principal)
CPT/HCPCS: 36415; 80048

== ENCOUNTER → 2024-08-31 | Outpatient (CLI) | payer MEDICARE, SELFPAY ==
[2024-08-31 12:14] LABS: Absolute Lymphocyte Count 2.42 X10^3/uL (0.83-4.51); Absolute Neutrophil Count 4.3 X10^3/uL (2.0-7.7); Basophil# 0.04 X10^3/uL; Basophil% 0.5 % (0-1); Eosinophil# 0.05 X10^3/uL; Eosinophils% 0.7 % (0-5); Hematocrit 42.8 % (40-54); Hemoglobin 14.8 g/dL (13.0-16.5); Lymphocyte # 2.42 X10^3/ul (0.83-4.51); Lymphocyte % 31.8 % (19-41); Mean Corp Hgb Conc 34.6 g/dL (32-36); Mean Corpuscular Hgb 33.3 pg (27.0-32.0); Mean Corpuscular Volume 96.2 fL (80-94); Monocyte# 0.74 X10^3/uL; Monocyte% 9.7 % (0-10); NRBC Flagged by Analyzer 0 % (0-5); Neutrophil # 4.33 X10^3/uL (2.7-7.7); Neutrophil % 56.9 % (47-70); Platelet Count 245 K/mm3 (150-450); RBC Distribution Width CV 12.1 % (11.6-14.6); Red Blood Count 4.45 M/mm3 (4.6-6.2); White Blood Count 7.6 K/mm3 (4.4-11.0)
[2024-08-31 12:43] LABS: ALB/GLOB Ratio 1.1 RATIO (0.9-2.4); AST(SGOT) 25 U/L (15-37); Alanine Aminotransfer ALT/SGPT 32 U/L (16-61); Alkaline Phosphatase 99 U/L (45-117); Anion Gap 6 (5-15); BUN 28 mg/dL (7-18); BUN/Creat Ratio 20.4 RATIO (10-20); Calcium,Total 9.6 mg/dL (8.5-10.1); Chloride 103 mmol/L (98-107); Cholesterol 222 mg/dL (200); Creatinine, Serum 1.37 mg/dL (0.70-1.30); EST Glomerular Filtration Rate 55 mL/min (>60); Est Glom Filt Rate - Afr Amer 67 mL/min (>60); Globulin 3.8 g/dL (2.2-4.2); Glucose 100 mg/dL (74-106); High Density Lipoprotein 48 mg/dL; PSA,Total - Annual Screen 0.76 ng/mL (0.00-4.00); Potassium 4.5 mmol/L (3.5-5.1); Protein, Total 7.8 g/dL (6.4-8.2); Sodium Level 135 mmol/L (136-145); Triglycerides 210 mg/dL; Very Low Density Lipoprotein 42 mg/dL (5-40)
[2024-08-31 13:42] LABS: Hemoglobin A1c 5.9 % (3.8-5.6)
== END | disposition home or self-care (01) ==
LOC: LAB.FUTURE 08:35 → BFHLAB 08:45
PROVIDERS: PCP Family Medicine; Referring Provider Family Medicine; Visit Provider Family Medicine
DX: I25.10 Atherosclerotic heart disease of native coronary artery without angina pectoris (principal); I10 Essential (primary) hypertension; E78.5 Hyperlipidemia, unspecified; R73.01 Impaired fasting glucose; Z12.5 Encounter for screening for malignant neoplasm of prostate
CPT/HCPCS: 36415; 80053; 80061; 83036; 84153; 85025; G0103

== ENCOUNTER → 2024-10-13 | Outpatient (CLI) | payer MEDICARE, SELFPAY ==
--- NOTE | 2024-10-13 16:31 | CT_ITS ---
STUDY: LOW DOSE CT LUNG CANCER SCREENING REASON FOR EXAM: Male, 64 years old. SCREENING. Former smoker. Patient smokes half a pack a day for 40 years. RADIATION DOSAGE (If Supplied By Facility): CTDIvol = ( 4.02 ) mGy, DLP = ( 147.48 ) mGycm TECHNIQUE: No contrast was administered. Low dose technique was utilized (average mAS-38 and kVp 120). 1.25 mm axial source images with a slice interval of 1.25-mm were reconstructed in lung windows. 2.5 mm axial source images with a slice interval of 2.5-mm were reconstructed in lung windows. 5.0 mm axial source images with a slice interval of 5.0-mm were reconstructed in soft tissue windows. COMPARISON: Comparison is made with prior study dated September 29, 2023. NODULES: No suspicious nodule is seen. Emphysema: Stable mild degree of apical scarring at the lung apices. Endobronchial lesion: None Aorta: Unremarkable CORONARY ARTERIES: Coronary artery calcification is seen. Heart: Unremarkable Pulmonary artery: Unremarkable Mediastinal nodes: Unremarkable Other chest and abdominal findings: CT/Low Dose CT Lung Screening IMPRESSION: Lung-RADS category 2 - Continue annual screening with LDCT in 12 months. IMPORTANT NOTES FOR USE: ACR Lung-RADS Version 1.1 Assessment Categories Release Date: 2018 Category: Coded 0-4 bases on nodule(s) with highest degree of suspicion. Negative screen is defined as categories 1 and 2; a positive screen is defined as categories 3 and 4. Category 3 and 4A nodules that are unchanged on interval CT should be coded as category 2, and individuals returned to screening in 12 months. Category 4X: Category 3 or 4 nodules with additional imaging findings that increase the suspicion of lung cancer, such as spiculation, GGN that doubles in size in 1 year, enlarged lymph notes, etc. Category Modifiers: S (significant finding unrelated to lung cancer) Electronically Signed: Colin Dick MD at 15:10 EST ,
== END | disposition home or self-care (01) ==
LOC: CT 16:30
PROVIDERS: PCP Family Medicine; Referring Provider Family Medicine; Visit Provider Family Medicine
DX: Z12.2 Encounter for screening for malignant neoplasm of respiratory organs (principal); Z87.891 Personal history of nicotine dependence
CPT/HCPCS: 71271

== ENCOUNTER → 2025-05-22 | Outpatient (CLI) | payer MEDICARE, SELFPAY ==
--- NOTE | 2025-05-22 16:03 | RAD_ITS ---
PROCEDURE: CHEST PA AND LATERAL 05/22/2025 REASON FOR EXAM: COUGH, FATIGUE TECHNIQUE: CHEST PA AND LATERAL COMPARISON: CT from 09/29/2023 FINDINGS: No focal consolidation. No pleural effusion or pneumothorax. Cardiac silhouette is within normal limits. No acute fractures. RAD/Chest PA and Lateral IMPRESSION: No focal consolidations. Reading Location: [facility]
== END | disposition home or self-care (01) ==
LOC: MTRAD 16:01
PROVIDERS: PCP Family Medicine; Referring Provider Family Medicine; Visit Provider Family Medicine
DX: R05.9 Cough, unspecified (principal)
CPT/HCPCS: 71046

== ENCOUNTER → 2025-09-01 | Outpatient (CLI) | payer MEDICARE, SELFPAY ==
[2025-09-01 12:19] LABS: Hematocrit 44.4 % (40-54); Hemoglobin 15.1 g/dL (13.0-16.5); Immature Granulocytes Count 0.010 X10^3/uL (0.0-0.0); Mean Corp Hgb Conc 34.0 g/dL (32-36); Mean Corpuscular Volume 98.4 fL (80-94); Mean Platelet Vol. 10.7 fl (6.2-12.0); NRBC Flagged by Analyzer 0 % (0-5); Platelet Count 240 K/mm3 (150-450); RBC Distribution Width CV 12.4 % (11.6-14.6); RBC Distribution Width SD 45.0 fl (35.1-43.9); Red Blood Count 4.51 M/mm3 (4.6-6.2); White Blood Count 6.5 K/mm3 (4.4-11.0)
[2025-09-01 13:17] LABS: AST(SGOT) 26 U/L (<=37); Alanine Aminotransfer ALT/SGPT 19 U/L (<=46); Albumin, Serum 4.4 g/dL (3.4-4.8); Alkaline Phosphatase 83 U/L (40-129); Anion Gap 10 (5-15); BUN 19 mg/dL (4-19); BUN/Creat Ratio 15.5 RATIO (10-20); Calcium,Total 9.7 mg/dL (7.6-11.0); Carbon Dioxide 26.8 mmol/L (21.0-32.0); Chloride 102 mmol/L (98-108); Cholesterol 141 mg/dL (<=200); Globulin 3.0 g/dL (2.2-4.2); Glucose 105 mg/dL (70-99); Low Density Lipoprotein Calc. 67 mg/dL; PSA,Total - Annual Screen 0.67 ng/mL (0.02-4.00); Potassium 5.3 mmol/L (3.3-5.1); Triglycerides 162 mg/dL; Very Low Density Lipoprotein 32 mg/dL (5-40); cholesterol:hdl ratio screen 3.02
== END | disposition home or self-care (01) ==
LOC: BFHLAB 09:03
PROVIDERS: PCP Family Medicine; Referring Provider Family Medicine; Visit Provider Family Medicine
DX: I25.10 Atherosclerotic heart disease of native coronary artery without angina pectoris (principal); N18.31 Chronic kidney disease, stage 3a; I12.9 Hypertensive chronic kidney disease with stage 1 through stage 4 chronic kidney disease, or unspecified chronic kidney disease; E78.5 Hyperlipidemia, unspecified; Z12.5 Encounter for screening for malignant neoplasm of prostate
CPT/HCPCS: 36415; 80053; 80061; 84153; 85025; G0103

== ENCOUNTER → 2025-09-19 | Outpatient (CLI) | payer MEDICARE, SELFPAY ==
--- OUTSIDE RECORDS SUMMARY | 2025-09-19 14:36 | XMS RPT_ITS | CCD ---
Author Organization [facility] Inform ion Partnership [facility] Care Team Providers Care Recyclable Products Sorter Name Role Phone Dr. Emery Jacobsen Primary Care Provider Dr. Carson Bradley Attending Provider [phone] Emery Jacobsen Referring Provider Dr. Helder Sosa Attending Provider Dr. Helder Sosa Other Provider Dr. Emery Jacobsen DO Primary Care Provider Dr. Emery Jacobsen DO Attending Provider [phone] Dr. Emery Jacobsen DO Referring Provider Emery Jacobsen Referring Unavailable Emery Jacobsen Primary Care Unavailable Emery Jacobsen Attending Unavailable Emery Jacobsen Referring Unavailable Emery Jacobsen Primary Care Unavailable Emery Jacobsen Attending Unavailable Emery Jacobsen Primary Care Unavailable Emery Jacobsen Attending Unavailable Emery Jacobsen Referring Unavailable Emery Jacobsen Referring Unavailable Emery Jacobsen Primary Care Unavailable Emery Jacobsen Attending Unavailable Medications Current Medications Medication Drug Class(es) Dates Sig (Normalized) Sig (Original) aspirin 81 mg delayed release oral tablet (7 sources) Platelet Aggregation Inhibitor, Nonsteroidal Anti-inflammatory Drug Start: 11-25-2021 take 1 tablet by mouth once daily Aspirin (Adult Aspirin Regimen) 81 mg tablet,delayed release (DR/EC) Active 81 mg PO DAILY November 25, 2021 1:00am fexofenadine hydrochloride 180 mg oral tablet (1 source) Histamine-1 Receptor Antagonist Start: 02-29-2024 take 1 tablet by mouth once daily Fexofenadine (Bianca Allergy) 180 mg tablet Active 180 mg PO DAILY February 29, 2024 12:00am hydroCHLOROthiazide 12.5 mg / lisinopril 20 mg oral tablet (7 sources) Thiazide Diuretic, Angiotensin Converting Enzyme Inhibitor Start: 11-25-2021 Lisinopril-Hydroc hlorothiazide 20-12.5 mg tablet Active 1 {tbl} PO DAILY November 25, 2021 1:00am Start: 11-25-2021 take 1 tablet by komal once daily Lisinopril-Hydrochlorothiazide Active 1 TABLET PO DAILY November 25, 2021 12:00am Multivitamin (Daily Multi-Vitamin) tablet (1 source) Start: 02-29-2024 Multivitamin ( Daily Multi-Vitamin) tablet Active 1 {tbl} PO DAILY February 29, 2024 12:00am tamsulosin hydrochloride 0.4 mg oral capsule (2 sources) alpha-Adrenerg ic Francesca Start: 12-23-2023 take 1 capsule by mouth every twenty-four hours Tamsulosin 0.4 mg capsule Active 0.4 mg PO Q24H December 23, 2023 1:00am Completed/Discontinued Medications Medication Drug Class(es) Dates Sig (Normalized) Sig (Original) acetaminophen 325 mg / HYDROcodone bitartrate 5 mg oral tablet (1 source) Opioid Agonist Start: 03-14-2024 End: 03-24-2024 Hydrocodone-Acetaminop hen 5-325 mg tablet Discontinued 1 {tbl} PO EVERY 6 HOURS as needed for pain 8 2 0 March 14, 2024 March 24, 2024 8:35am Hiatal hernia Diaphragmatic hernia without obstruction or gangrene omeprazole 40 mg delayed release oral capsule (2 sources) Proton Pump Inhibitor Start: 11-30-2023 End: 03-14-2024 take 1 capsule by mouth once daily Omeprazole 40 mg capsule,delayed release(DR/EC) Discontinued 40 mg PO DAILY 90 1 November 30, 2023 1:00am March 14, 2024 7:17am Gastroesophageal reflux disease with esophagitis Gastro-esophageal reflux disease with esophagitis, without bleeding Acid reflux Problems Active Problems Problem Classification Problem Date Documented Date Episodic/Chronic Abdominal hernia (1 source) Hiatal hernia; Translations: [Diaphragmatic hernia without obstruction or gangrene] 04-18-2024 Episodic Chronic kidney disease (1 source) Chronic kidney disease; Translations: [Chronic kidney disease, stage 3a] Onset: 09-01-2025 Coronary atherosclerosis and other heart disease (1 source) 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; Translations: [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] Onset: 09-01-2025 Chronic Disorders of lipid metabolism (1 source) Hyperlipidemia, unspecified; Translations: [Hyperlipidemia, unspecified] Onset: 09-01-2025 Chronic Esophageal disorders (4 sources) Gastro-esophageal reflux disease with esophagitis; Translations: [Gastroesophageal reflux disease with esophagitis] 11-30-2023 Chronic Essential hypertension (8 sources) Hypertensive disorder; Translations: [Essential (primary) hypertension] Onset: 09-01-2025 12-02-2021 Chronic Comment on above: per pt, controlled o n meds Other inflammatory condition of skin (7 sources) Psoriasis; Translations: [Psoriasis, unspecified] 11-25-2021 Chronic Other lower respiratory disease (3 sources) Computed tomography result abnormal; Translations: [Other nonspecific abnormal finding of lung field] 10-06-2023 Episodic Other lower respiratory disease (2 sources) Other nonspecific abnormal finding of lung field; Translations: [Other nonspecific abnormal finding of lung field] 10-06-2023 Episodic Other screening for suspected conditions (not mental disorders or infectious disease) (9 sources) Patient encounter status; Translations: [Encounter for screening for malignant neoplasm of intestinal tract, unspecified] Onset: 11-09-2024 11-25-2021 Episodic Unclassified (1 source) Cough, unspecified; Translations: [Cough, unspecified] Onset: 05-25-2025 Past or Other Problems Problem Classification Problem Date Documented Da te Episodic/Chronic Other aftercare (1 source) Encounter for therapeutic drug level monitoring; Translations: [Encounter for therapeutic drug level monitoring] Onset: 09-20-2024 Episodic Results Test Name Value Interpretation Reference Range Facility CBC W/Diff, Automatedon 11-0 Absolute Lymph 2.56 X10 3/uL Normal 0.83-4.51 [facility] Comment on above: Performed By: #### L 501.9910, L100.0100, L500.4050, L500.4100 #### [facility] [place], [address] Absolute Neut 3.3 X10 3/uL Normal 2.0-7.7 [facility] Comment on above: Performed By: #### L 501.9910, L100.0100, L500.4050, L500.4100 #### [facility] [address] [place], [address] Basophils/100 WBC (Bld) 0.6 % Normal 0-1 [facility] Comment on above: Performed By: #### L 501.9910, L100.0100, L500.4050, L500.4100 #### [facility] [address] [place], [address] Eosinophils/100 WBC (Bld) 1.1 % Normal 0-5 [facility] Comment on above: Performed By: #### L 501.9910, L100.0100, L500.4050, L500.4100 #### [facility] [address] [place], [address] Erythrocyte distribution width (RBC) [Ratio] 12.4 % Normal 11.6-14.6 [facility] Comment on above: Performed By: #### L 501.9910, L100.0100, L500.4050, L500.4100 #### [facility] [address] [place], [address] Hematocrit (Bld) [Volume fraction] 44.4 % Normal 40-54 [facility] Comment on above: Performed By: #### L 501.9910, L100.0100, L500.4050, L500.4100 #### [facility] [address] [place], [address] Hemoglobin (Bld) [Mass/Vol] 15.1 g/dL Normal 13.0-16.5 [facility] Comment on above: Performed By: #### L 501.9910, L100.0100, L500.4050, L500.4100 #### [facility] [address] [place], [address] IG% 0.200 Normal 0.0-0.9 [facility] Comment on above: Result Comment: IG% - Immature Granulocytes (promyelocytes, myelocytes and metamyelocytes) > 1% indicates that a LEFT SHIFT is Present. Performed By: #### L 501.9910, L100.0100, L500.4050, L500.4100 #### [facility] [address] [place], [address] Lymphocytes/100 WBC (Bld) 39.3 % Normal 19-41 [facility] Comment on above: Performed By: #### L 501.9910, L100.0100, L500.4050, L500.4100 #### [facility] [address] [place], [address] MCH (RBC) [Entitic mass] 33.5 pg High 27.0-32.0 [facility] Comment on above: Performed By: #### L 501.9910, L100.0100, L500.4050, L500.4100 #### [facility] [address] [place], [address] MCHC (RBC) [Mass/Vol] 34.0 g/dL Normal 32-36 [facility] Comment on above: Performed By: #### L 501.9910, L100.0100, L500.4050, L500.4100 #### [facility] [address] [place], [address] MCV (RBC) [Entitic vol] 98.4 fL High 80-94 [facility] Comment on above: Performed By: #### L 501.9910, L100.0100, L500.4050, L500.4100 #### [facility] [address] [place], [address] Monocytes/100 WBC (Bld) 8.9 % Normal 0-10 [facility] Comment on above: Performed By: #### L 501.9910, L100.0100, L500.4050, L500.4100 #### [facility] [address] [place], [address] Neutrophils/100 WBC (Bld) 49.9 % Normal 47-70 [facility] Comment on above: Performed By: #### L 501.9910, L100.0100, L500.4050, L500.4100 #### [facility] [address] [place], [address] Nucleated RBC (Bld) [#/Vol] 0 10*3/uL Normal 0-5 [facility] Comment on above: Performed By: #### L 501.9910, L100.0100, L500.4050, L500.4100 #### [facility] [address] [place], [address] Platelet mean volume (Bld) [Entitic vol] 10.7 fL Normal 6.2-12.0 [facility] Comment on above: Performed By: #### L 501.9910, L100.0100, L500.4050, L500.4100 #### [facility] [address] [place], [address] Platelets (Bld) [#/Vol] 240 10*3/uL Normal 150-450 [facility] Comment on above: Performed By: #### L 501.9910, L100.0100, L500.4050, L500.4100 #### [facility] [address] [place], [address] RBC (Bld) [#/Vol] 4.51 10*6/uL Low 4.6-6.2 [facility] Comment on above: Performed By: #### L 501.9910, L100.0100, L500.4050, L500.4100 #### [facility] [address] [place], [address] RDW SD 45.0 fl High 35.1-43.9 [facility] Comment on above: Performed By: #### L 501.9910, L100.0100, L500.4050, L500.4100 #### [facility] [address] [place], [address] WBC (Bld) [#/Vol] 6.5 10*3/uL Normal 4.4-11.[address] [facility] Comment on above: Performed By: #### L 501.9910, L100.0100, L500.4050, L500.4100 #### [facility] [address] [place], [address] Comprehensive Metabolic Prof [facility] 09-01-2025 Albumin [Mass/Vol] 4.4 g/dL Normal 3.4-4.[address] [facility] Comment on above: Performed By: #### L 501.9910, L100.0100, L500.4050, L500.4100 #### [facility] [address] [place], [address] Albumin/Globulin [Mass ratio] 1.5 {ratio} Normal 0.9-2.4 [facility] Comment on above: Performed By: #### L 501.9910, L100.0100, L500.4050, L500.4100 #### [facility] [address] [place], [address] ALK PHOS 83 U/L Normal 40-129 [facility] Comment on above: Performed By: #### L 501.9910, L100.0100, L500.4050, L500.4100 #### [facility] [address] [place], [address] ALT [Catalytic activity/Vol] 19 U/L Normal <=46 [facility] Comment on above: Performed By: #### L 501.9910, L100.0100, L500.4050, L500.4100 #### [facility] [address] [place], [address] AST [Catalytic activity/Vol] 26 U/L Normal <=37 [facility] Comment on above: Performed By: #### L 501.9910, L100.0100, L500.4050, L500.4100 #### [facility] [address] [place], [address] Bilirubin [Mass/Vol] 0.67 mg/dL Normal 0.00-1.30 [facility] Comment on above: Performed By: #### L 501.9910, L100.0100, L500.4050, L500.4100 #### [facility] [address] [place], [address] BUN/CRE 15.5 RATIO Normal 10-20 [facility] Comment on above: Performed By: #### L 501.9910, L100.0100, L500.4050, L500.4100 #### [facility] [address] [place], [address] Calcium [Mass/Vol] 9.7 mg/dL Normal 7.6-11.[address] [facility] Comment on above: Performed By: #### L 501.9910, L100.0100, L500.4050, L500.4100 #### [facility] [address] [place], [address] Chloride [Moles/Vol] 102 mmol/L Normal 98-108 [facility] Comment on above: Performed By: #### L 501.9910, L100.0100, L500.4050, L500.4100 #### [facility] [address] [place], [address] CO2 [Moles/Vol] 26.8 mmol/L Normal 21.0-32.0 [facility] Comment on above: Performed By: #### L 501.9910, L100.0100, L500.4050, L500.4100 #### [facility] [address] [place], [address] Creatinine [Mass/Vol] 1.22 mg/dL High 0.70-1.20 [facility] Comment on above: Performed By: #### L 501.9910, L100.0100, L500.4050, L500.4100 #### [facility] [address] [place], [address] GAP 10 Normal 5-15 [facility] Comment on above: Performed By: #### L 501.9910, L100.0100, L500.4050, L500.4100 #### [facility] [address] [place], [address] GFR/1.73 sq M.predicted among non-blacks MDRD (S/P/Bld) [Vol rate/Area] 65 mL/min/{1.73_m2} Normal >60 [facility] Comment on above: Result Comment: mL/m in/1.73m2 CKD-EPI Creatinine Equation (2020) Performed By: #### L 501.9910, L100.0100, L500.4050, L500.4100 #### [facility] [address] [place], [address] Globulin (S) [Mass/Vol] 3.0 g/dL Normal 2.2-4.2 [facility] Comment on above: Performed By: #### L 501.9910, L100.0100, L500.4050, L500.4100 #### [facility] [address] [place], [address] Glucose [Mass/Vol] 105 mg/dL High 70-[address] [facility] Comment on above: Performed By: #### L 501.9910, L100.0100, L500.4050, L500.4100 #### [facility] [address] [place], [address] Potassium [Moles/Vol] 5.3 mmol/L High 3.3-5.1 [facility] Comment on above: Performed By: #### L 501.9910, L100.0100, L500.4050, L500.4100 #### [facility] [address] [place], [address] Sodium [Moles/Vol] 138 mmol/L Normal 133-[address] [facility] Comment on above: Performed By: #### L 501.9910, L100.0100, L500.4050, L500.4100 #### [facility] [address] [place], [address] T PROT 7.4 g/dL Normal 5.9-8.4 [facility] Comment on above: Performed By: #### L 501.9910, L100.0100, L500.4050, L500.4100 #### [facility] [address] [place], [address] Urea nitrogen [Mass/Vol] 19 mg/dL Normal 4-19 [facility] Comment on above: Performed By: #### L 501.9910, L100.0100, L500.4050, L500.4100 #### [facility] [address] [place], [address] Lipid Profileon 09-01-2025 CHOL:HDL 3.02 Normal [facility] Comment on above: Performed By: #### L 501.9910, L100.0100, L500.4050, L500.4100 #### [facility] [address] [place], [address] Cholesterol [Mass/Vol] 141 mg/dL Normal <=200 [facility] Comment on above: Result Comment: Chol esterol level, Desirable <200 mg/dL Borderline high cholesterol 200-239 mg/dL High cholesterol >=240 mg/dL Recommendations of the NCEP Adult Treatment Panel for the following risk-cutoff thresholds for the [place] population. Performed By: #### L 501.9910, L100.0100, L500.4050, L500.4100 #### [facility] [address] [place], [address] Cholesterol in HDL [Mass/Vol] 47 mg/dL Normal [facility] Comment on above: Result Comment: Allie onal Cholesterol Education Program (NCEP) guidelines: <40 mg/dL: Low HDL-cholesterol (major risk factor for CHD) >= 60 mg/dL: High HDL-cholesterol (negative risk factor for CHD) HDL-cholesterol is affected by a number of factors, e.g. smoking, exercise, hormones, sex and age. Performed By: #### L 501.9910, L100.0100, L500.4050, L500.4100 #### [facility] [address] [place], [address] Cholesterol in LDL [Mass/Vol] 67 mg/dL Normal [facility] Comment on above: Result Comment: Bord ubciaj=951-380 mg/dL Higher Ucgy=508 mg/dL or greater Cedillo Equation 2020 for LDL-C Performed By: #### L 501.9910, L100.0100, L500.4050, L500.4100 #### [facility] [address] [place], [address] Cholesterol in VLDL [Mass/Vol] 32 mg/dL Normal 5-40 [facility] Comment on above: Performed By: #### L 501.9910, L100.0100, L500.4050, L500.4100 #### [facility] [address] [place], [address] Triglyceride [Mass/Vol] 162 mg/dL Normal [facility] Comment on above: Result Comment: The drugs N-Acetylcysteine and Metamizole may falsely depress this assay. Normal range: <150 mg/dL Borderline High: 150-199 mg/dL High: 200-499 mg/dL Very High: >500 mg/dL Performed By: #### L 501.9910, L100.0100, L500.4050, L500.4100 #### [facility] [address] [place], [address] PSA,Total - Annual Screenon 09-01-2025 PSA,TOT SCREEN 0.67 ng/mL Normal 0.02-4.00 [facility] Comment on above: Result Comment: This test was performed using the [employer] tPSA method. Measured values of a patient??sample can vary depending on the testing procedure used. PSA values determined on patient samples by different testing procedures cannot be used interchangeably. If there is a change in PSA assays while monitoring therapy, sequential testing should be performed to confirm baseline values. Performed By: #### L 501.9910, L100.0100, L500.4050, L500.4100 #### [facility] [address] [place], [address] Chest PA and Lateralon 05-22 Chest PA and Lateral [facility] Imaging Services [address] [facility] [place] [address] Chest PA and Lateral MR#: [id number] Acct: [id number] Name: KAREL CASH Rep #: [id number] : 1960 M 65 From: Silvia Love PCP: Dr. Emery Jacobsen, Status: REG CLI Study: Chest PA and Lateral Date of Exam: 05/22/25 Exam# [id number] Ordering Dr: Emery Jacobsen DO PROCEDURE: CHEST PA AND LATERAL 05/22/2025 REASON FOR EXAM: COUGH, FATIGUE TECHNIQUE: CHEST PA AND LATERAL COMPARISON: CT from 09/29/2023 FINDINGS: No focal consolidation. No pleural effusion or pneumothorax. Cardiac silhouette is within normal limits. No acute fractures. RAD/Chest PA and Lateral IMPRESSION: No focal consolidations. Reading Location: [facility] CC: Dr. Emery Jacobsen DO Draw In Hand: Signed Normal [facility] Low Dose CT Lung Screeningon 10-13-[address] Lung Screening [facility] Imaging Services [address] [place], [place] [address] Low Dose CT Lung Screening MR#: [id number] Acct: [id number] Name: KAREL CASH Rep #: [id number] : 1960 M 64 From: Colin arzate MD PCP: Dr. Emery Jacobsen DO Status: REG CLI Study: Low Dose CT Lung Screening Date of Exam: 10/13 Exam# [id number] Ordering Dr: Emery Jacobsen DO -[id number] STUDY: LOW DOSE CT LUNG CANCER SCREENING REASON FOR EXAM: Male, 64 years old. SCREENING. Former smoker. Patient smokes half a pack a day for 40 years. RADIATION DOSAGE (If Supplied By Facility): CTDIvol = ( 4.02 ) mGy, DLP = ( 147.48 ) mGycm TECHNIQUE: No contrast was administered. Low dose technique was utilized (average mAS-38 and kVp 120). 1.25 mm axial source images with a slice interval of 1.25-mm were reconstructed in lung windows. 2.5 mm axial source images with a slice interval of 2.5-mm were reconstructed in lung windows. 5.0 mm axial source images with a slice interval of 5.0-mm were reconstructed in soft tissue windows. COMPARISON: Comparison is made with prior study dated September 29, 2023. NODULES: No suspicious nodule is seen. Emphysema: Stable mild degree of apical scarring at the lung apices. Endobronchial lesion: None Aorta: Unremarkable CORONARY ARTERIES: Coronary artery calcification is seen. Heart: Unremarkable Pulmonary artery: Unremarkable Mediastinal nodes: Unremarkable Other chest and abdominal findings: CT/Low Dose CT Lung Screening IMPRESSION: Lung-RADS category 2 - Continue annual screening with LDCT in 12 months. IMPORTANT NOTES FOR USE: ACR Lung-RADS Version 1.1 Assessment Categories Release Date: 2018 Category: Coded 0-4 bases on nodule(s) with highest degree of suspicion. Negative screen is defined as categories 1 and 2; a positive screen is defined as categories 3 and 4. Category 3 and 4A nodules that are unchanged on interval CT should be coded as category 2, and individuals returned to screening in 12 months. Category 4X: Category 3 or 4 nodules with additional imaging findings that increase the suspicion of lung cancer, such as spiculation, GGN that doubles in size in 1 year, enlarged lymph notes, etc. Category Modifiers: S (significant finding unrelated to lung cancer) Electronically Signed: Colin Dick MD at 15:10 EST , CC: Dr. Emery Jacobsen, Draw In Hand: Signed Normal [facility] Basophil percentageOrdered B y: Emery Jacobsen on 09-21-2023 Chloride [Moles/Vol] 103 mmol/L 98-107 [facility] Glucose [Mass/Vol] 104 mg/dL 74-[address] [facility] Comment on above: Fasting Glucose resu lt from 100 to 125 mg/dL suggests IMPAIRED HOMEOSTASIS per A.D.A. criteria. Potassium [Moles/Vol] 4.3 mmol/L 3.5-5.1 [facility] Sodium [Moles/Vol] 137 mmol/L 136-[address] [facility] Laboratory - Chemistry and C hemistry - challengeOrdered By: Emery Jacobsen on 09-21-2023 CO2 [Moles/Vol] 27.0 mmol/L 21.0-32.0 [facility] Urea nitrogen/Creatinine [Mass ratio] 16.4 mg/mg 10-20 [facility] No Panel InformationOrdered By: mEery Jacobsen on 09-21-2023 Estimated GFR (MDRD) Amer 65 mL/min >60 [facility] Comment on above: GFR Calc Estimated GFR (MDRD) Non-Af Amer 54 mL/min >60 [facility] Comment on above: Non- GFR Calc Serum or plasma calcium barb urement (mass/volume)Ordered By: Emery Jacobsen on 09-21-2023 Calcium [Mass/Vol] 9.0 mg/dL 8.5-10.[address] [facility] Serum or plasma creatinine m easurement (mass/volume)Ordered By: Emery Jacobsen on 09-21-2023 Creatinine [Mass/Vol] 1.40 mg/dL 0.70-1.30 [facility] Comment on above: The validity of the calculated GFR & GFRAA in patients over 70 years has not been determined. Clinical correlation is essential. Serum or plasma urea nitroge n measurement (mass/volume)Ordered By: Emery Jacobsen on 09-21-2023 Urea nitrogen [Mass/Vol] 23 mg/dL 7-18 [facility] Thin prep Papanicolaou smear with manual screeningOrdered By: Emery Jacobsen on 09-21-2023 Thin prep Papanicolaou smear with manual screening 7 5-15 [facility] Absolute lymphocyte countOrd ered By: Emery Jacobsen on 09-15-2023 Lymphocytes Auto (Unsp spec) [#/Vol] 1.75 10*3/uL 0.83-4.51 [facility] Basophil percentageOrdered B y: Emery Jacobsen on 09-15-2023 Basophils/100 WBC (Bld) 0.5 % 0-1 [facility] Bilirubin [Mass/Vol] 0.60 mg/dL 0.20-1.00 [facility] Comment on above: For patients on eltr ombopag therapy, use of Dimension Broadus TBIL is not recommended. Chloride [Moles/Vol] 104 mmol/L 98-107 [facility] Cholesterol [Mass/Vol] 206 mg/dL <200 [facility] Comment on above: <200 mg/dL Desirable 200-240 mg/dL Borderline >240 mg/dL High Risk Eosinophils/100 WBC (Bld) 0.8 % 0-5 [facility] Glucose [Mass/Vol] 106 mg/dL 74-106 [facility] Comment on above: Fasting Glucose resu lt from 100 to 125 mg/dL suggests IMPAIRED HOMEOSTASIS per A.D.A. criteria. Neutrophils (Bld) [#/Vol] 3.9 10*3/uL 2.0-7.7 [facility] Neutrophils/100 WBC (Bld) 60.1 % 47-70 [facility] Potassium [Moles/Vol] 5.6 mmol/L 3.5-5.1 [facility] Protein [Mass/Vol] 7.5 g/dL 6.4-8.[address] [facility] Sodium [Moles/Vol] 137 mmol/L 136-[address] [facility] Triglyceride [Mass/Vol] 217 mg/dL <199 [facility] Comment on above: The drugs N-Acetylcy steine and Metamizole may falsely depress this assay.Serum Triglycerides Reference Interval Normal <150 mg/dL Borderline high 150 - 199 mg/dL High 200 - 499 mg/dL Very High > or = 500 mg/dL WBC (Bld) [#/Vol] 6.4 10*3/uL 4.4-11.[address] [facility] Blood erythrocytes count (nu mber/volume)Ordered By: Emery Jacobsen on 09-15-2023 RBC (Bld) [#/Vol] 4.70 10*6/uL 4.6-6.2 [facility] Blood hemoglobin measurement (mass/volume)Ordered By: Emery Jacobsen on 09-15-2023 Hemoglobin (Bld) [Mass/Vol] 15.0 g/dL 13.0-16.5 [facility] Blood lymphocytes/100 leukoc ytesOrdered By: Emery Jacobsen on 09-15-2023 Lymphocytes/100 WBC (Bld) 27.3 % 19-41 [facility] Blood monocytes/100 leukocyt esOrdered By: Emery Jacobsen on 09-15-2023 Monocytes/100 WBC (Bld) 10.8 % 0-10 [facility] Blood platelet mean volumeOr dered By: Emery Jacobsen on 09-15-2023 Platelet mean volume (Bld) [Entitic vol] 10.6 fL 6.2-12.0 [facility] Determination of erythrocyte mean corpuscular volume (MCV)Ordered By: Emery Jacobsen on 09-15-2023 MCV (RBC) [Entitic vol] 97.7 fL 80-94 [facility] Hematocrit Auto (Bld) [Volum e fraction]Ordered By: Emery Jacobsen on 09-15-2023 Hematocrit (Bld) [Volume fraction] 45.9 % 40-54 [facility] Laboratory - Chemistry and C hemistry - challengeOrdered By: Emery Jacobsen on 09-15-2023 ALP [Catalytic activity/Vol] 78 U/L 45-117 [facility] ALT [Catalytic activity/Vol] 26 U/L 16-61 [facility] CO2 [Moles/Vol] 29.0 mmol/L 21.0-32.0 [facility] Globulin (S) [Mass/Vol] 3.9 g/dL 2.2-4.2 [facility] Urea nitrogen/Creatinine [Mass ratio] 14.8 mg/mg 10-20 [facility] Laboratory - Hematology and Cell countsOrdered By: Emery Jacobsen on 09-15-2023 Erythrocyte distribution width (RBC) [Entitic vol] 46.2 fL 35.1-43.9 [facility] Erythrocyte distribution width (RBC) [Ratio] 12.9 % 11.6-14.6 [facility] Immature granulocytes/100 WBC (Bld) 0.500 % 0.0-0.9 [facility] Comment on above: IG% - Immature Granu locytes (promyelocytes, myelocytes and metamyelocytes) > 1% indicates that a LEFT SHIFT is Present. MCH (RBC) [Entitic mass] 31.9 pg 27.0-32.0 [facility] Nucleated RBC/100 WBC (Bld) [Ratio] 0 % 0-5 [facility] MCHC Auto (RBC) [Mass/Vol]Or dered By: Emery Jacobsen on 09-15-2023 MCHC (RBC) [Mass/Vol] 32.7 g/dL 32-36 [facility] No Panel InformationOrdered By: Emery Jacobsen on 09-15-2023 Estimated GFR (MDRD) Amer 68 mL/min >60 [facility] Comment on above: GFR Calc Estimated GFR (MDRD) Non-Af Amer 56 mL/min >60 [facility] Comment on above: Non- GFR Calc Prostate Specific Antigen Screen 0.88 ng/mL 0.00-4.00 [facility] Comment on above: This test was perfor med using the TPSA assay method for the[employer] chemistry system. Values obtained with differentassay methods cannot be used interchangably.When changing PSA assays in the course of monitoring apatient, additional sequential testing should be carriedout to confirm baseline values. Platelets bldOrdered By: Heidi Jacobsen on 09-15-2023 Platelets (Bld) [#/Vol] 282 10*3/uL 150-450 [facility] Serum or plasma albumin barb urement (mass/volume)Ordered By: Emery Jacobsen on 09-15-2023 Albumin [Mass/Vol] 3.6 g/dL 3.2-5.[address] [facility] Serum or plasma albumin/glob ulin mass ratioOrdered By: Emery Jacobsen on 09-15-2023 Albumin/Globulin [Mass ratio] 0.9 {ratio} 0.9-2.4 [facility] Serum or plasma calcium barb urement (mass/volume)Ordered By: Emery Jacobsen on 09-15-2023 Calcium [Mass/Vol] 9.2 mg/dL 8.5-10.[address] [facility] Serum or plasma cholesterol in HDL measurement (mass/volume)Ordered By: Emery Jacobsen on 09-15-2023 Cholesterol in HDL [Mass/Vol] 44 mg/dL >40 [facility] Comment on above: The drugs N-Acetylcy steine and Metamizole may falsely depress this assay. Reference Range HDL <40 mg/dL Low HDL Cholesterol HDL >or= 60 mg/dL High HDL Cholesterol Serum or plasma cholesterol in VLDL measurement (mass/volume)Ordered By: Emery Jacobsen on 09-15-2023 Cholesterol in VLDL [Mass/Vol] 43 mg/dL 5-40 [facility] Serum or plasma creatinine m easurement (mass/volume)Ordered By: Emery Jacobsen on 09-15-2023 Creatinine [Mass/Vol] 1.35 mg/dL 0.70-1.30 [facility] Comment on above: The validity of the calculated GFR & GFRAA in patients over 70 years has not been determined. Clinical correlation is essential. Serum or plasma low density lipoprotein (LDL) cholesterol measurement (mass/volume)Ordered By: Emery Jacobsen on 09-15-2023 Cholesterol in LDL [Mass/Vol] 119 mg/dL 0-130 [facility] Serum or plasma urea nitroge n measurement (mass/volume)Ordered By: Emery Jacobsen on 09-15-2023 Urea nitrogen [Mass/Vol] 20 mg/dL 7-18 [facility] Thin prep Papanicolaou smear with manual screeningOrdered By: Emery Jacobsen on 09-15-2023 Thin prep Papanicolaou smear with manual screening 25 U/L 15-37 [facility] Thin prep Papanicolaou smear with manual screening 4 5-15 [facility] Whole blood hemoglobin A1c/t otal hemoglobin ratio (mass fraction)Ordered By: Emery Jacobsen on 09-15-2023 HbA1c (Bld) [Mass fraction] 5.7 % 3.8-5.6 [facility] Comment on above: Normal < 5.7 % Predi abetic 5.7 - 6.4 % Diabetic >or= 6.5 % Please note range changes. Absolute lymphocyte counton 09-11-2022 Lymphocytes Auto (Unsp spec) [#/Vol] 2.19 10*3/uL 0.83-4.51 [facility] Work Phone: Basophil percentageon 2021 Basophils/100 WBC (Bld) 0.4 % 0-1 [facility] Work Phone: Bilirubin [Mass/Vol] 0.60 mg/dL 0.20-1.00 [facility] Work Phone: Comment on above: For patients on eltr ombopag therapy, use of Dimension Broadus TBIL is not recommended. Chloride [Moles/Vol] 103 mmol/L 98-107 [facility] Work Phone: Cholesterol [Mass/Vol] 198 mg/dL <200 [facility] Work Phone: Comment on above: <200 mg/dL Desirable 200-240 mg/dL Borderline >240 mg/dL High Risk Eosinophils/100 WBC (Bld) 0.6 % 0-5 [facility] Work Phone: Glucose [Mass/Vol] 107 mg/dL 74-[address] [facility] Work Phone: Comment on above: Fasting Glucose resu lt from 100 to 125 mg/dL suggests IMPAIRED HOMEOSTASIS per A.D.A. criteria. Neutrophils (Bld) [#/Vol] 6.0 10*3/uL 2.0-7.7 [facility] Work Phone: Neutrophils/100 WBC (Bld) 66.5 % 47-70 [facility] Work Phone: Potassium [Moles/Vol] 4.9 mmol/L 3.5-5.1 [facility] Work Phone: Protein [Mass/Vol] 7.5 g/dL 6.4-8.[address] [facility] Work Phone: Sodium [Moles/Vol] 136 mmol/L 136-[address] [facility] Work Phone: Triglyceride [Mass/Vol] 219 mg/dL <199 [facility] Work Phone: Comment on above: The drugs N-Acetylcy steine and Metamizole may falsely depress this assay.Serum Triglycerides Reference Interval Normal <150 mg/dL Borderline high 150 - 199 mg/dL High 200 - 499 mg/dL Very High > or = 500 mg/dL WBC (Bld) [#/Vol] 9.1 10*3/uL 4.4-11.[address] [facility] Work Phone: Blood erythrocytes count (nu mber/volume)on 09-11-2022 RBC (Bld) [#/Vol] 4.66 10*6/uL 4.6-6.2 [facility] Work Phone: Blood hemoglobin measurement (mass/volume)on 09-11-2022 Hemoglobin (Bld) [Mass/Vol] 15.3 g/dL 13.0-16.5 [facility] Work Phone: Blood lymphocytes/100 leukoc yteson 09-11-2022 Lymphocytes/100 WBC (Bld) 24.1 % 19-41 [facility] Work Phone: Blood monocytes/100 leukocyt eson 09-11-2022 Monocytes/100 WBC (Bld) 8.0 % 0-10 [facility] Work Phone: Blood platelet mean volumeon 09-11-2022 Platelet mean volume (Bld) [Entitic vol] 10.4 fL 6.2-12.0 [facility] Work Phone: Determination of erythrocyte mean corpuscular volume (MCV)on 09-11-2022 MCV (RBC) [Entitic vol] 97.0 fL 80-94 [facility] Work Phone: Hematocrit Auto (Bld) [Volum e fraction]on 09-11-2022 Hematocrit (Bld) [Volume fraction] 45.2 % 40-54 [facility] Work Phone: Laboratory - Chemistry and C hemistry - challengeon 09-11-2022 ALP [Catalytic activity/Vol] 77 U/L 45-117 [facility] Work Phone: ALT [Catalytic activity/Vol] 29 U/L 16-61 [facility] Work Phone: CO2 [Moles/Vol] 27.0 mmol/L 21.0-32.0 [facility] Work Phone: Globulin (S) [Mass/Vol] 3.8 g/dL 2.2-4.2 [facility] Work Phone: Urea nitrogen/Creatinine [Mass ratio] 15.2 mg/mg 10-20 [facility] Work Phone: Laboratory - Hematology and Cell countson 09-11-2022 Erythrocyte distribution width (RBC) [Entitic vol] 45.7 fL 35.1-43.9 [facility] Work Phone: Erythrocyte distribution width (RBC) [Ratio] 12.9 % 11.6-14.6 [facility] Work Phone: Immature granulocytes/100 WBC (Bld) 0.400 % 0.0-0.9 [facility] Work Phone: Comment on above: IG% - Immature Granu locytes (promyelocytes, myelocytes and metamyelocytes) > 1% indicates that a LEFT SHIFT is Present. MCH (RBC) [Entitic mass] 32.8 pg 27.0-32.0 [facility] Work Phone: Nucleated RBC/100 WBC (Bld) [Ratio] 0 % 0-5 [facility] Work Phone: MCHC Auto (RBC) [Mass/Vol]on 09-11-2022 MCHC (RBC) [Mass/Vol] 33.8 g/dL 32-36 [facility] Work Phone: No Panel Informationon 09-11 Estimated GFR (MDRD) Amer 70 mL/min >60 [facility] Work Phone: Comment on above: GFR Calc Estimated GFR (MDRD) Non-Af Amer 58 mL/min >60 [facility] Work Phone: Comment on above: Non- GFR Calc Prostate Specific Antigen Screen 0.83 ng/mL 0.00-4.00 [facility] Work Phone: Comment on above: This test was perfor med using the TPSA assay method for the[facility]. Values obtained with differentassay methods cannot be used interchangably.When changing PSA assays in the course of monitoring apatient, additional sequential testing should be carriedout to confirm baseline values. Platelets bldon 09-11-2022 Platelets (Bld) [#/Vol] 284 10*3/uL 150-450 [facility] Work Phone: Serum or plasma albumin barb urement (mass/volume)on 09-11-2022 Albumin [Mass/Vol] 3.7 g/dL 3.2-5.[address] [facility] Work Phone: Serum or plasma albumin/glob ulin mass ratioon 09-11-2022 Albumin/Globulin [Mass ratio] 1.0 {ratio} 0.9-2.4 [facility] Work Phone: Serum or plasma calcium barb urement (mass/volume)on 09-11-2022 Calcium [Mass/Vol] 9.1 mg/dL 8.5-10.[address] [facility] Work Phone: Serum or plasma cholesterol in HDL measurement (mass/volume)on 09-11-2022 Cholesterol in HDL [Mass/Vol] 46 mg/dL >40 [facility] Work Phone: Comment on above: The drugs N-Acetylcy steine and Metamizole may falsely depress this assay. Reference Range HDL <40 mg/dL Low HDL Cholesterol HDL >or= 60 mg/dL High HDL Cholesterol Serum or plasma cholesterol in VLDL measurement (mass/volume)on 09-11-2022 Cholesterol in VLDL [Mass/Vol] 44 mg/dL 5-40 [facility] Work Phone: Serum or plasma creatinine m easurement (mass/volume)on 09-11-2022 Creatinine [Mass/Vol] 1.32 mg/dL 0.70-1.30 [facility] Work Phone: Comment on above: The validity of the calculated GFR & GFRAA in patients over 70 years has not been determined. Clinical correlation is essential. Serum or plasma low density lipoprotein (LDL) cholesterol measurement (mass/volume)on 09-11-2022 Cholesterol in LDL [Mass/Vol] 108 mg/dL 0-130 [facility] Work Phone: Serum or plasma urea nitroge n measurement (mass/volume)on 09-11-2022 Urea nitrogen [Mass/Vol] 20 mg/dL 7-18 [facility] Work Phone: Thin prep Papanicolaou smear with manual screeningon 09-11-2022 Thin prep Papanicolaou smear with manual screening 20 U/L 15-37 [facility] Work Phone: Thin prep Papanicolaou smear with manual screening 6 5-15 [facility] Work Phone: Whole blood hemoglobin A1c/t otal hemoglobin ratio (mass fraction)on 09-11-2022 HbA1c (Bld) [Mass fraction] 5.8 % 3.8-5.6 [facility] Work Phone: Comment on above: Normal < 5.7 % Predi abetic 5.7 - 6.4 % Diabetic >or= 6.5 % Please note range changes. Vital Signs Date Time Vital Sign Value Performing Clinician Colt roberts 12-29-2023 08:20-0500 Body temperature 97.6 [degF] Dr. Emery Jacobsen Work Phone: [facility] 12-29-2023 08:20-0500 Diastolic blood pressure 73 mm[Hg] Dr. Emery Jacobsen Work Phone: [facility] 12-29-2023 08:20-0500 Heart rate 51 /min Dr. Emery Jacobsen Work Phone: [facility] 12-29-2023 08:20-0500 Respiratory rate 18 /min Dr. Emery Jacobsen Work Phone: [facility] 12-29-2023 08:20-0500 SaO2% (BldA) [Mass fraction] 97 % Dr. Emery Jacobsen Work Phone: [facility] 12-29-2023 08:20-0500 Systolic blood pressure 130 mm[Hg] Dr. Emery Jacobsen Work Phone: [facility] 12-29-2023 07:23-0500 Body height 180.[address] mEery Jacobsen Work Phone: [facility] 12-29-2023 07:23-0500 Body mass index (BMI) [Ratio] 25 kg/m2 Dr. Emery Jacobsen Work Phone: [facility] 12-29-2023 07:23-0500 Body weight 81.[address] Emery Jacobsen Work Phone: [facility] 11-30-2023 13:11-0500 Body mass index (BMI) [Ratio] 25.3 kg/m2 Dr. Emery Jacobsen Work Phone: [facility] 11-30-2023 13:11-0500 Body temperature 96.4 [degF] Dr. Emery Jacobsen Work Phone: [facility] 11-30-2023 13:11-0500 Body weight 82.[address] Emery Jacobsen Work Phone: [facility] 11-30-2023 13:11-0500 Diastolic blood pressure 80 mm[Hg] Dr. Emery Jacobsen Work Phone: [facility] 11-30-2023 13:11-0500 Heart rate 71 /min Dr. Emery Jacobsen Work Phone: [facility] 11-30-2023 13:11-0500 Respiratory rate 18 /min Dr. Emery Jacobsen Work Phone: [facility] 11-30-2023 13:11-0500 SaO2% (BldA) [Mass fraction] 97 % Dr. Emery Jacobsen Work Phone: [facility] 11-30-2023 13:11-0500 Systolic blood pressure 126 mm[Hg] Dr. Emery Jacobsen Work Phone: [facility] 10-07-2023 10:50-0500 Body temperature 97.8 [degF] Dr. Emery Jacobsen Work Phone: [facility] 10-07-2023 10:50-0500 Diastolic blood pressure 78 mm[Hg] Dr. Emery Jacobsen Work Phone: [facility] 10-07-2023 10:50-0500 Heart rate 63 /min Dr. Emery Jacobsen Work Phone: [facility] 10-07-2023 10:50-0500 Respiratory rate 18 /min Dr. Emery Jacobsen Work Phone: [facility] 10-07-2023 10:50-0500 SaO2% (BldA) [Mass fraction] 97 % Dr. Emery Jacobsen Work Phone: [facility] 10-07-2023 10:50-0500 Systolic blood pressure 116 mm[Hg] Dr. Emery Jacobsen Work Phone: [facility] 10-07-2023 09:48-0500 Body height 180.[address] Emery Jacobsen Work Phone: [facility] 10-07-2023 09:48-0500 Body mass index (BMI) [Ratio] 24.9 kg/m2 Dr. Emery Jacobsen Work Phone: [facility] 10-07-2023 09:48-0500 Body weight [address] Emery Jacobsen Work Phone: [facility] 10-06-2023 15:20-0500 Body mass index (BMI) [Ratio] 25.2 kg/m2 Dr. Emery Jacobsen Work Phone: [facility] 10-06-2023 15:20-0500 Body temperature 97.3 [degF] Dr. Emery Jacobsen Work Phone: [facility] 10-06-2023 15:20-0500 Body weight 81.[address] Emery Jacobsen Work Phone: [facility] 10-06-2023 15:20-0500 Diastolic blood pressure 84 mm[Hg] Dr. Emery Jacobsen Work Phone: [facility] 10-06-2023 15:20-0500 Heart rate 71 /min Dr. Emery Jacobsen Work Phone: [facility] 10-06-2023 15:20-0500 Respiratory rate 18 /min Dr. Emery Jacobsen Work Phone: [facility] 10-06-2023 15:20-0500 SaO2% (BldA) [Mass fraction] 100 % Dr. Emery Jacobsen Work Phone: [facility] 10-06-2023 15:20-0500 Systolic blood pressure 125 mm[Hg] Dr. Emery Jacobsen Work Phone: [facility] Encounters Encounter Date Encounter Type Care Provider Facility Start: 09-01-2025 ambulatory Emery Delmar Facility: [facility] Start: 05-22-2025 End: 05-22-[address] Emery Jacobsen DO Work Phone: [facility] Start: 05-22-2025 End: 05-22-[address] Emery Jacobsen DO [facility] Work Phone: Start: 05-22-2025 End: 05-22-2025 ambulatory Emery Jacobsen Facility:[facility] Start: 10-13-2024 End: 10-13-[facility] Start: 09-20-2024 ambulatory Emery Delmar Facility: [facility] Start: 12-29-2023 Non-patient / Non-visit Dr. Devyn Jacobsen Work Phone: [facility] Start: 12-29-2023 End: 12-29-2023 Admission to same day surgery center Dr. Emery Jacobsen Work Phone: [facility] Work Phone: Start: 12-29-2023 End: 12-29-[address] Emery Jacobsen Work Phone: [facility] Work Phone: Start: 11-30-2023 End: 11-30-[address] Emery Jacobsen Work Phone: [facility] Work Phone: Start: 10-07-2023 Non-patient / Non-visit Dr. Devyn Jacobsen Work Phone: [facility] Start: 10-07-2023 End: 10-07-2023 Admission to same day surgery center Dr. Emery Jacobsen Work Phone: [facility] Work Phone: Start: 10-07-2023 End: 10-07-[address] Emery Jacobsen Work Phone: [facility] Work Phone: Start: 10-06-2023 End: 10-06-[address] Emery Jacobsen Work Phone: [facility] Work Phone: Start: 09-29-2023 Non-patient / Non-visit Dr. Devyn Jacobsen Work Phone: [facility] Start: 09-29-2023 End: 09-29-[address] Emery Jacobsen Work Phone: [facility] Work Phone: Start: 09-29-2023 End: 09-29-[address] Emery Jacobsen Work Phone: [facility] Work Phone: Start: 09-21-2023 End: 09-21-[address] [facility] Start: 09-15-2023 End: 09-15-2023 ambulatory [facility] Work Phone: Start: 09-15-2023 End: 09-15-2023 [facility] Start: 09-23-2022 End: 09-23-2022 ambulatory [facility] Work Phone: Start: 09-23-2022 End: 09-23-2022 Patient encounter procedure [facility] Start: 09-11-2022 End: 09-11-2022 ambulatory [facility] Work Phone: Start: 09-11-2022 End: 09-11-2022 [facility] Procedures Date Procedure Procedure Detail Performing Clinician Start: 05-22-2025 X-ray of chest, PA and lateral views Dr. Emery Jacobsen DO Work Phone: Start: 12-29-[address] Emery santiago Work Phone: Start: 10-07-[address] Emery santiago Work Phone: Start: 09-29-[address] Emery Jacobsen Work Phone: Start: 09-23-2022 CT of chest Plan of Treatment Date Care Activity Detail Author Start: 12-29-2023 Patient discharge [facility] Start: 10-07-2023 Egd transoral biopsy single/multiple EGD BIOPSY SINGLE/MULTIPLE [facility] Start: 10-07-2023 Patient discharge [facility] Patient referral [facility] Work Phone: [facility] Immunizations Immunization Date Immunization Notes Care Provider Fa cility 10-14-2021 Covid (Moderna) [facility] 01-24-2021 Covid (Pfizer) [facility] 01-03-2021 Covid (Pfizer) [facility] Payers Date Payer Category Payer Self-pay [id number] 2024 Unknown [id number] 2013 Unknown MED MUTUAL TPA [id number] Private Health Insurance [id number] 94 Unknown [id number] Unknown [id number] Unknown [id number] Unknown [id number] Social History Date Type Detail Facility Start: 12-02-2021 End: 12-23-2023 Tobacco smoking status NHIS Unknown if ever smoked [facility] Start: 1960 Sex Assigned At Male [facility] Start: 02-29-2024 Tobacco smoking stat us CTIS Ex-smoker (finding) [facility] Medical Equipment Procedure Code Equipment Code Equipment Origin al Text Equipment Identifier Dates Inez fundoplication Plant poly saccharide haemostatic agent, bioabsorbable ()[id number] FDA Start: 03-14-2024 Inez fundoplication Cardiovasc ular patch, synthetic ()[id number] FDA Start: 03-14-2024 Inez fundoplication Ligation c lip, synthetic polymer, non-bioabsorbable ()[id number] FDA Start: 03-14-2024 Goals Date Patient Goal Desired Activity /State Mental Status Date Assessment Result Facility 12-29-2023 Cognitive function Voice/Name [facility] Work Phone: 10-07-2023 Cognitive function Light Pain [facility] Work Phone: Clinical Notes 10-07-2023 to 05-22-2025 Note Date & Type Note Facility 05-22-2025 Radiology Diagnostic study note [facility] Imaging Services [address], [place] [address] Chest PA and Lateral MR#: [id number] Acct: [id number] Name: KAREL CASH Rep #: [id number] : 1960 M 65 From: Yoko Fields MD PCP: Dr. Emery Jacobsen, DO Status: REG CLI Study:Chest PA and Lateral Date of Exam: 05/22/25 Exam# [id number] Ordering Dr: Emery Jacobsen DO PROCEDURE: CHEST PA AND LATERAL 05/22/2025 REASON FOR EXAM: COUGH, FATIGUE TECHNIQUE: CHEST PA AND LATERAL COMPARISON: CT from 09/29/2023 FINDINGS: No focal consolidation. No pleural effusion or pneumothorax. Cardiac silhouette is within normal limits. No acute fractures. RAD/Chest PA and Lateral IMPRESSION: No focal consolidations. Reading Location: [facility] CC: Dr. Emery Jacobsen DO ~ Draw In Hand: Signed [facility] 12-29-2023 Procedure note [facility] 12-29-2023 Procedure note [facility] 10-07-2023 Procedure note [facility] 10-07-2023 Procedure note [facility] Evaluation note No assessment inform ation available [facility] Work Phone: Evaluation note Diagnosis Onset Date Abnormal [facility] Work Phone: Evaluation note* Diagnosis Onset Date Resolution Status Abnormal CT lung screening [facility] Reflux esophagitis acute [facility] Work Phone: History and physical note Author Helder Montoyajoann [facility] October 07, 2023 9:57am Note Date/Time October 07, 2023 9:57am [facility] Medical Records Department [address] [place] [id number] History & Physical Exam 10/07/23 0957 MR#: [id number] Acct: [id number] Name: KAREL CASH Rep #:[id number] : 1960 63 From: Helder Sosa MD PCP: Dr. Emery Jacobsen DO Status:[facility] Location: [place] [address] History and Physical Date of Admission: 10/07/23 Visit Reasons: UPPER SCOPE FOR ESOPHAGITIS V MASS Chief Complaint: upper scope for esophagitis v mass Is patient in pain?: No Allergies No Known Allergies Allergy (Verified 10/06/23 15:21) Medications aspirin 81 mg tablet,delayed release (Adult Aspirin Regimen) 81 mg PO DAILY 11/25/21 [History Confirmed 10/06/23] lisinopril 20 mg-hydrochlorothiazide 12.5 mg tablet 1 tab PO DAILY 11/25/21 [History Confirmed 10/06/23] [facility] Medical History Alcohol use Former smoker Heartburn History of malignant melanoma History of malignant melanoma of skin Hypertension Psoriasis Wears glasses Surgical History History of colonoscopy History of removal of skin mole History of tonsillectomy Family History Father Hypertension Heart disease CVA (cerebral vascular accident)Mother Hypertension Cancer skinUncle Colon cancer Social History (Updated 11/25/21 @ 13:03 by Tamra Thursday) Smoking Status: Former smoker alcohol intake: current substance use type: does not use HPI HPI HPI: 63-year-old gentleman. He has a previous history of cigarette smoking and has annual chest CT scans as surveillance. On his most recent evaluation September 29, 2023 there was a question of thickening of the distal esophagus possible reflux or possible mass. He has been referred for evaluation. He has no swallowing difficulties however then he does state that he has had for years intermittent episodes of heartburn. In the past he would take Rolaids as neededbut nothing consistently. He states that Dr Alex Boston just recently prescribed him reflux medication and the patient is awaiting for via mail delivery. He states however that in general he does not have discomfort and hasno swallowing problems. He has had no weight loss. ROS General General: No weight change, appetite, fatigue, colon cancer or breast cancer HEENT HEENT: No difficulty swallowing, eye injury, eye surgery, swollen glands or hoarseness Endo Endocrine: No thyroid disease, diabetes mellitus, thyroid cancer, Hair loss, heat intolerance or cold intolerance Skin Skin: No rash or changing moles Breast Breast: No left breast lump, right breast lump, nipple discharge, breast pain, abnormal mammogram, abnormal US or breast enlargement Musc Musculoskeletal: No back problems, arthritis, rheumatoid arthritis, gout or joint pain Cardio Cardiovascular: No murmur, pacemaker, heart disease, atrial fibrillation, high blood pressure, heart attack, heart stent, palpitations, shortness of breat withexertion or chest pain Psych Psychiatric: No depression, anxiety or hearing voices Resp Respiratory: No shortness of breath, No sleep apnea, No cough, No COPD, No asthma, No emphysema and No wheezing Gastro Gastrointestinal: No abdominal pain, No nausea or vomiting, No diarrhea, No constipation, No blood in stool, No acid reflux, No hemorrhoids, No ulcers, No gallbladder problem and No black,tarry stools [place]ylor Hematologic: No blood thinners, No blood disorders, No bleeding, No anemia and No blood clots Exam Const General: cooperative, healthy appearing, comfortable and no acute distress Nutritional Appearance: average body habitus [facility] Head: normal to inspection Eyes General: appearance normal, both eyes and all related structures Neck Neck: normal visual inspection Chest Other: Slightly increased AP diameter Resp Effort & Inspection: normal respiratory effort Auscultation: clear to auscultation bilaterally Cardio Rate: regular rate Rhythm: regular rhythm GI Other: Soft, nontender Skin General: no rashes or lesions noted Neuro General: patient alert, patient awake and patient oriented x3 Extrem General: no calf tenderness Psych Appearance: grossly normal Assessment and Plan Assessment and Plan (1) Abnormal CT lung screening: Status: Acute Plan: Abnormal CT screening imaging with possible distal esophageal thickening. I recommended the patient a esophagogastroduodenoscopy with possible biopsy or polypectomy as indicated. He is aware of the technique, benefit, risk, alternatives. He had an opportunity ask and have questions answered. We will ask mellitus care and have scheduled him for tomorrow Copy: Dr Alex Sosa M.D., F.A.C.S. I have examined the patient and the H&P has been reviewed. There are no clinicalchanges since date of exam. Helder Sosa M.D., F.A.C.S. 10/07/23 0957 <Electronically signed by Helder Sosa MD> Cosigner Signature (if applicable): CC: Dr. Emery Jacobsen, ; Dr. Helder Sosa MD~ Signed [facility] Work Phone: History and physical note Author Helder Sosa [facility] December 29, 2023 7:16am Note Date/Time December 29, 2023 7:16 am [facility] Medical Records Department [address] [place] [address] History & Physical Exam 12/29/23714 MR#: [id number] Acct: [id number] Name: KAREL CASH Rep #:[id number] : 1960 63 From: Helder Sosa MD PCP: Dr. 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 Required: No Is patient in pain?: No Allergies No Known Allergies Allergy (Verified 11/30/23 13:15) Medications aspirin 81 mg tablet,delayed release (Adult Aspirin Regimen) 81 mg PO DAILY 11/25/21 [History Confirmed 11/30/23] lisinopril 20 mg-hydrochlorothiazide 12.5 mg tablet 1 tab PO DAILY 11/25/21 [History Confirmed 11/30/23] omeprazole 40 mg capsule,delayed release 40 mg PO DAILY Acid reflux #90 caps 11/30/23 [Rx Confirmed 11/30/23] PFSH Medical History (Updated 11/30/23 @ 13:13 by Nesha Cowan) Abnormal CT lung screening Alcohol use Former smoker Gastric reflux Heartburn History of malignant melanoma History of malignant melanoma of skin Hypertension Psoriasis Reflux esophagitis Wears glasses Surgical History (Updated 11/30/23 @ 13:14 by Nesha Cowan) History of colonoscopy History of esophagogastroduodenoscopy (EGD) History of removal of skin mole History of tonsillectomy Family History Father Hypertension Heart disease CVA (cerebral vascular accident)Mother Hypertension Cancer skinUncle Colon cancer Social History Smoking Status: Former smoker alcohol intake: current substance use type: does not use HPI HPI HPI: 63-year-old gentleman. I have most recently assisted him on October 07, 2023. I performed a esophagogastroduodenoscopy with biopsy. Severe esophagitis with bleeding was found. A 3 cm hiatal hernia was seen. There were multiple sessilepolyps of the greater curvature of the stomach. There was gastric metaplasia inthe duodenum. I recommended to him omeprazole 40 mg twice daily for 2 to 3 weeks with conversion back then to daily. I recommended that he return to see me in 2 months. We would then plan to do a repeat upper endoscopy at 3 months. I additionally suggested if he have breakthrough symptoms that we initiate Carafate therapy. On pathology he had severe acute and chronic inflammation of the distal esophagus. He has been very strict with the diet and avoidance of reflux inducing foods. He has ceased all alcohol. He has not been eating within 3 hours of going to sleep. He is raise the head of his bed. He has been relentless with the nonoperative management. He states that he is not had a single episode of requiring additional antacids since his upper scope. ROS General General: No weight change, appetite, fatigue, colon cancer, breast cancer or weakness HEENT HEENT: No difficulty swallowing, eye injury, eye surgery, swollen glands or hoarseness Endo Endocrine: No thyroid disease, diabetes mellitus, thyroid cancer, Hair loss, heat intolerance or cold intolerance Skin Skin: No rash or changing moles Breast Breast: No left breast lump, right breast lump, nipple discharge, breast pain, abnormal mammogram, abnormal US or breast enlargement Musc Musculoskeletal: No back problems, arthritis, rheumatoid arthritis, gout or joint pain Cardio Cardiovascular: No murmur, pacemaker, heart disease, atrial fibrillation, high blood pressure, heart attack, heart stent, palpitations, shortness of breat withexertion or chest pain Psych Psychiatric: No depression, anxiety or hearing voices Resp Respiratory: No shortness of breath, No sleep apnea, No cough, No COPD, No asthma, No emphysema and No wheezing Gastro Gastrointestinal: No abdominal pain, No nausea or vomiting, No diarrhea, No constipation, No blood in stool, No acid reflux, No hemorrhoids, No ulcers, No gallbladder problem and No black,tarry stools [place]ylor Hematologic: No blood thinners, No blood disorders, No bleeding, No anemia and No blood clots Neuro Neurologic: No system reviewed and no additional complaints, except as documented, No as per HPI, No abnormal gait, No abnormal hearing, No abnormal movements, No abnormal speech, No behavioral changes, No burning sensations, No confusion, No convulsions, No disequilibrium, No dizziness, No localized weakness, No frequent falls, No headache(s), No lack of coordination, No loss ofvision, No memory loss, No numbness, No other visual disturbances, No radicular pain, No restless legs, No sensory deficit, No syncope, No tingling, No tremor(s), No weakness and No other Exam Const General: cooperative, healthy appearing and comfortable Nutritional Appearance: average body habitus [facility] Head: normal to inspection Eyes General: appearance normal, both eyes and all related structures Chest Chest palpation & inspection: normal inspection of the chest Resp Effort & Inspection: normal respiratory effort Auscultation: clear to auscultation bilaterally Cardio Rate: regular rate Rhythm: regular rhythm GI Palpation: soft and no hepatosplenomegaly Musc Cervical Spine: normal cervical lordosis Skin General: no rashes or lesions noted Neuro General: patient alert and patient awake Extrem General: no calf tenderness Psych Appearance: grossly normal Assessment and Plan Assessment and Plan (1) Reflux esophagitis: Status: Acute Qualifiers: Esophagitis bleeding: without hemorrhage Qualified Code(s): K21.00 - Gastro-esophageal reflux disease with esophagitis, without bleeding Plan: 63-year-old gentleman who seems to be making excellent improvement on the omeprazole 40 mg daily and strict observance of conservative measures. Because of the severity of his distal esophagitis I do recommend a esophagogastroduodenoscopy with possible biopsy. We then discussed potential toproceed with esophageal manometry with consideration of possible surgical refluxprocedure. We did discuss potential of long-term need for proton pump inhibitortherapy in our chart desire to avoid that if possible. We did provide him with a prescription renewal today. He has had an opportunity ask and have questions answered. We will reschedule for an esophagogastroduodenoscopy with biopsy. Subsequent to that if he is completely healed might consider manometry at his discretion. I appreciate the ongoing option of assisting with the surgical care. Copy: Dr. Emery Sosa M.D., F.A.C.S. Medications: New omeprazole 40 mg PO DAILY 90 caps 1RF Acid reflux K21.00 - Gastro-esophageal reflux disease with esophagitis, without bleeding I have examined the patient and the H&P has been reviewed. There are no clinicalchanges since date of exam. Helder Sosa M.D., F.A.C.S. 03/05/24 0716 <Electronically signed by Helder Sosa MD> Cosigner Signature (if applicable): CC: Dr. Emery Jacobsen DO; Dr. Helder Sosa MD~ Signed [facility] Work Phone: Reason for referral (narrative)No reason for referral [facility] Work Phone: Family History No Family History Records Found Relationship Condition Age at Onset Recorded Date/T evangelista father Hypertension Unknown Cardiac disease Unknown Cerebrovascular accident (CVA) Unknown mother Hypertension Unknown Malignant neoplasm Unknown uncle Malignant neoplasm of colon Unknown Advance Directives No Advanced Directives Records Found Advance Directive Response Recorded Date/ Time Living Will No December 02 11:30am Power of Lead Tank Mechanic No December 02, 2021 11:30am Advance Directive Response Recorded Date/ Time Name of Medical Power of Lead Tank Mechanic BROTHER October 06, 2023 3:59pm Living Will Yes October 06, 2 023 3:59pm Power of Lead Tank Mechanic Yes October 06, 2023 3:59pm Advance Directive Response Recorded Date/ Time Name of Medical Power of Lead Tank Mechanic BROTHER October 06, 2023 3:59pm Name of Medical Power of Lead Tank Mechanic BROTHER December 23, 2023 3:59pm Living Will Yes December 23, 2 024 3:59pm Power of Lead Tank Mechanic Yes December 23, 2023 3:59pm Chief Complaint and Reason for Visit Chief Complaint Encounter for screen ing for malignant neoplasm of Chief Complaint ANNUAL LUNG CANCER S CREEN Chief Complaint ANNUAL LUNG CANCER S CREEN UPPER SCOPE FOR ESOPHAGITIS V MASS Reason for Visit Abnormal CT lung scr eening Chief Complaint ANNUAL LUNG CANCER S CREEN UPPER SCOPE FOR ESOPHAGITIS V MASS DISCUSS SCOPE Reason for Visit Abnormal CT lung scr eening Reflux esophagitis Summary Purpose Additional Source Comments Goals (unrecognized section and content) Goals may be documented in a n alternate sectionGoals may be documented in an alternate sectionGoals may be documented in an alternate sectionGoals may be documented in an alternate sectionGoals may be documented in an alternate section Care Teams (unrecognized sec tion and content) Team Status: Active Member Role Status Dates Dr. Emery Jacobsen DO Family Provider Active Dr. Emery Jacobsen DO Primary Care Provider Active Team Status: Inactive Member Role Status Dates Dr. Emery Jacobsen DO Primary Care Provider, Attendin g Provider Active Team Status: Active Member Role Status Dates Dr. Emery Jacobsen DO Primary Care Provider Active Dr. Carson Bradley MD Attending Provider Active Team Status: Inactive Member Role Status Dates Dr. Emery Jacobsen DO Primary Care Prov ider, Attending Provider, Referring Provider Active Team Status: Inactive Member Role Status Dates Dr. Emery Jacobsen DO Primary Care Provider, Referrin g Provider Active Dr. Helder Sosa MD Attending Provider Active Team Status: Active Member Role Status Dates Dr. Emery Jacobsen DO Primary Care Provider, Referrin g Provider Active Dr. Helder Sosa MD Attending Provider, Other Prov ider Active Team Status: Active Member Role/Relationship Status Dates Dr. Emery Jacobsen DO Family Provider Active Dr. Emery Jacobsen DO Primary Care Provider Active Team Status: Inactive Member Role/Relationship Status Dates Dr. Emery Jacobsen DO Primary Care Provider Active Start: May 22, 2025 End: May 22, 2025 Dr. Emery Jacobsen DO Attending Provider Active Start: May 22, 2025 End: May 22, 2025 Dr. Emery Jacobsen DO Referring Provider Active Start: May 22, 2025 End: May 22, 2025 (unrecognized sect ion and content) No Status Records Found INFORMATION SOURCE (unrecogn ized section and content) DATE CREATED AUTHOR 09/03/2025 [facility] FOR RECORDS PERTAINING TO PATIENTS WHO ARE OR HAVE BEEN ENROLLED IN A CHEMICAL DEPENDENCY/SUBSTANCEABUSE PROGRAM, SOME INFORMATION MAY BE OMITTED. This clinical summary was aggregated from multiple sources. Caution should be exercised in using it in the provision of clinical care. This summary normalizes information from multiple sources, and as a consequence, information in this document may materially change the coding, format and clinical context of patient data. In addition, data may be omitted in some cases. CLINICAL DECISIONS SHOULD BE BASED ON THE PRIMARY CLINICAL RECORDS. [employer] provides no warranty or guarantee of the accuracy or completeness of information in this document.
[2025-09-19 15:42] LABS: Potassium 4.7 mmol/L (3.3-5.1)
== END | disposition home or self-care (01) ==
LOC: BFHLAB 11:51
PROVIDERS: PCP Family Medicine; Visit Provider Family Medicine
DX: E87.5 Hyperkalemia (principal)
CPT/HCPCS: 36415; 84132

== ENCOUNTER → 2025-10-13 | Outpatient (CLI) | payer MEDICARE, SELFPAY ==
--- NOTE | 2025-10-13 15:50 | CT_ITS ---
PROCEDURE: LOW DOSE CT LUNG SCREENING 10/13/2025 REASON FOR EXAM: HX NICOTINE DEPENDENCE TECHNIQUE: Procedure Code: [id number] Modality: CT Procedure: LOW DOSE CT LUNG SCREENING Coronal and Sagittal reconstruction series were provided. One or more dose reduction techniques were used (e.g., Automated exposure control, adjustment of the mA and/or kV according to patient size, use of iterative reconstruction technique). REFERENCE LINK: [email or web address] Lung-RADS RADIATION DOSE SUMMARY: CTDlvol: 3 mGy DLP: 113 mGycm COMPARISON: 10/13/2024 FINDINGS: PULMONARY NODULES: (Only nodules >3mm are reported) Nodules described below are on series 2 unless otherwise specified. Pulmonary Nodules: Bilateral apical scarring, some of which has a nodular appearance, stable. No new suspicious pulmonary nodules. Hardware:Unremarkable Lymph Nodes:Unremarkable Heart and Vasculature:Coronary artery calcifications are noted.Atherosclerotic calcifications of the thoracic aorta. Thoracic aorta and pulmonary arteries have normal contours; noncontrast technique limits evaluation. Coronary Artery Calcifications: Present Lungs and Airways: Mild emphysematous changes are present. Pleura:Unremarkable Upper Abdomen:Unremarkable Bones:Unremarkable CT/Low Dose CT Lung Screening IMPRESSION: No new suspicious pulmonary nodules. Coronary artery calcification (CAC) is is present Lung-RADS Category: 2 BENIGN (BASED ON IMAGING FEATURES OR INDOLENT BEHAVIOR). RECOMMEND 12-MONTH SCREENING LDCT. Other Significant Findings: Reading Location: [id number]
== END | disposition home or self-care (01) ==
LOC: CT 15:46
PROVIDERS: PCP Family Medicine; Referring Provider Family Medicine; Visit Provider Family Medicine
DX: Z12.2 Encounter for screening for malignant neoplasm of respiratory organs (principal); Z87.891 Personal history of nicotine dependence
CPT/HCPCS: 71271